=== PATIENT | female | born 1935 | race Caucasian/White ===

== ENCOUNTER → 2017-08-24 | Outpatient (CLI) | payer MEDICARE ==
[2017-08-24 08:22] LABS: CH 30.9; CHCM 34.3; HCT 41.1 % (34.0-46.0); HDW 2.55; HGB 13.5 gm/dL (11.4-16.0); MCH 29.7 pg (25.0-35.0); MCHC 32.7 g/dL (31.0-37.0); MCV 90.7 fL (80.0-100.0); RBC 4.53 m/uL (3.80-5.40); RDW 13.9 % (11.5-15.5); WBC 8.4 k/uL (3.8-10.6)
[2017-08-24 08:23] LABS: Appearance,Urine Clear (Clear); Bilirubin,Urine Negative (Negative); Glucose,Urine (UA) Negative (Negative); Ketones,Urine Negative (Negative); Leukocyte Esterase,Urine Negative (Negative); Nitrite,Urine Negative (Negative); Protein,Urine Negative (Negative); Specific Gravity,Urine 1.007 (1.001-1.035); UA Billing (MACRO vs. MICRO) CHEM; Urobilinogen,Urine <2.0 mg/dL (<2.0)
[2017-08-24 08:30] LABS: ALT 33 U/L (9-52); AST 23 U/L (14-36); Alkaline Phosphatase 74 U/L (38-126); Anion Gap 12 mmol/L; Blood Urea Nitrogen 14 mg/dL (7-17); Calcium 9.6 mg/dL (8.4-10.2); Carbon Dioxide 22 mmol/L (22-30); Chloride 102 mmol/L (98-107); Glucose 119 mg/dL (74-99); Non-African American GFR(MDRD) >60 (>60 ml/min/1.73 sqM); Sodium 136 mmol/L (137-145); Total Bilirubin 0.4 mg/dL (0.2-1.3); Total Protein 7.2 g/dL (6.3-8.2)
[2017-08-24 08:34] LABS: INR 1.1 (<1.2); Partial Thromboplastin Time 24.4 sec (22.0-30.0); Prothrombin Time 11.3 sec (9.0-12.0)
== END | disposition home or self-care (01) ==
LOC: LABPAT 07:53
PROVIDERS: ATTEND Orthopaedic Surgery
DX: Z01.812 Encounter for preprocedural laboratory examination (principal); Z51.81 Encounter for therapeutic drug level monitoring; Z79.01 Long term (current) use of anticoagulants
CPT/HCPCS: 36415; 80053; 81003; 85027; 85610; 85730; 87070

== ENCOUNTER → 2017-09-01 | Outpatient (CLI) | payer MEDICARE ==
--- NOTE | 2017-09-01 16:29 | US ---
EXAMINATION TYPE: US carotid duplex BILAT DATE OF EXAM: 09/01/2017 COMPARISON: NONE CLINICAL HISTORY: R09.89 Carotid Bruit. Pre surgical assessment, pending hip replacement EXAM MEASUREMENTS: RIGHT: Peak Systolic Velocity (PSV) cm/sec ----- Right CCA: 86.6 ----- Right ICA: 111.7 ----- Right ECA: 174.0 ICA/CCA ratio: 1.3 RIGHT: End Diastole cm/sec ----- Right CCA: 16.8 ----- Right ICA: 21.1 ----- Right ECA: 8.5 LEFT: Peak Systolic Velocity (PSV) cm/sec ----- Left CCA: 92.2 ----- Left ICA: 93.0 ----- Left ECA: 108.4 ICA/CCA ratio: 1.0 LEFT: End Diastole cm/sec ----- Left CCA: 18.0 ----- Left ICA: 22.4 ----- Left ECA: 12.8 VERTEBRALS (direction of flow): Right Vertebral: Antegrade Left Vertebral: Antegrade Rhythm: Normal Mild heterogeneous plaque seen with no significant stenosis IMPRESSION: 1. Atheromatous plaquing without significant internal carotid artery flow-limiting stenosis by ultras ound velocities. Some narrowing of the right external carotid artery may be present. Criteria for Assigning % of Stenosis / Diameter reduction (Estimation based on the indirect measurements of the internal carotid artery velocities (ICA PSV). 1. Normal (no stenosis)=ICA PSV < 125 cm/s: ratio < 2.0: ICA EDV<40 cm/s. 2. Less than 50% stenosis=ICA PSV < 125 cm/s: ratio < 2.0: ICA EDV<40 cm/s. 3. 50 to 69% stenosis=ICA PSV of 125 to 230 cm/s: ration 2.0 ? 4.0: ICA EDV 40-100 cm/s. 4. Greater than 70% stenosis to near occlusion= ICA PSV > 230 cm/s: ratio > 4.0: ICA EDV > 100 cm/s. 5. Near occlusion= ICA PSV velocities may be low or undetectable: variable ratio and ICA EDV. 6. Total occlusion=unable to detect flow.
== END ==
LOC: RADUSWWP 15:44
PROVIDERS: ATTEND Family Medicine
DX: I70.90 Unspecified atherosclerosis (principal)
CPT/HCPCS: 86850; 86900; 86901; 93880

== ENCOUNTER → 2018-05-07 | Outpatient (CLI) | payer MEDICARE ==
[2018-05-08 08:00] VITALS: BMI 29.2
== END | disposition home or self-care (01) ==
LOC: MNTWWP 08:39
PROVIDERS: ATTEND Family Medicine
DX: R73.01 Impaired fasting glucose (principal)
CPT/HCPCS: 97802

== ENCOUNTER → 2018-08-15 | Outpatient (CLI) | payer MEDICARE ==
--- NOTE | 2018-08-15 09:23 | CT ---
EXAMINATION TYPE: CT sinus wo con DATE OF EXAM: 08/15/2018 COMPARISON: None HISTORY: hyposmia CT DLP: 544.70 mGycm CONTRAST: 0 mL of Isovue 300 The paranasal sinuses are examined in the axial plane at 2 mm thick sections. Reconstructed images i n the coronal plane were obtained. There is dental amalgam scatter artifact The maxillary sinuses are clear. The ethmoid air cells are clear. There is opacification of a small right sphenoid sinus. The frontal sinuses are clear. The septum is evaluated. There is septal deviation to the right. Bilateral katie bullosa are presen t. Small right septal spur is present. The ostiomeatal units are patent. Portion of the mastoid air cells within the [id number] are clear. Cribriform plate appears unremar kable. IMPRESSIONS: 1. Opacification of a small right sphenoid sinus. 2. Septal deviation.
== END | disposition home or self-care (01) ==
LOC: RADCTMAIN 07:09
PROVIDERS: ATTEND Otolaryngology
DX: J34.89 Other specified disorders of nose and nasal sinuses (principal); J34.2 Deviated nasal septum; R43.2 Parageusia
CPT/HCPCS: 70486

== ENCOUNTER → 2019-05-08 | Outpatient (CLI) | payer MEDICARE ==
--- NOTE | 2019-05-08 21:33 | US ---
EXAMINATION TYPE: US carotid duplex BILAT DATE OF EXAM: 05/08/2019 COMPARISON: 09/01/2017 CLINICAL HISTORY: 83-year-old female R09.89 SYMPTOMS INVOLVING CIRCULATORY AND RESPIRATORY SYSTEMS. B ruit, no symptoms, no h/o stroke TECHNIQUE: Carotid duplex ultrasound examination. Indirect Doppler criteria is utilized. FINDINGS: EXAM MEASUREMENTS: RIGHT: Peak Systolic Velocity (PSV) cm/sec ----- Right CCA: 76.5 ----- Right ICA: 124 ----- Right ECA: 130 ICA/CCA ratio: 1.6 RIGHT: End Diastole cm/sec ----- Right CCA: 0.0 ----- Right ICA: 22.6 ----- Right ECA: 5.4 LEFT: Peak Systolic Velocity (PSV) cm/sec ----- Left CCA: 92.6 ----- Left ICA: 94.0 ----- Left ECA: 84.5 ICA/CCA ratio: 1.0 LEFT: End Diastole cm/sec ----- Left CCA: 16.6 ----- Left ICA: 22.7 ----- Left ECA: 4.3 VERTEBRALS (direction of flow): Right Vertebral: antegrade Left Vertebral: antegrade Rhythm: Normal Power Plant Installer notes: Mild homogeneous plaque with no significant stenosis seen IMPRESSION: No hemodynamically significant stenosis appreciated in either internal carotid artery. Criteria for Assigning % of Stenosis / Diameter reduction (Estimation based on the indirect measurements of the internal carotid artery velocities (ICA PSV). 1. Normal (no stenosis)=ICA PSV < 125 cm/s: ratio < 2.0: ICA EDV<40 cm/s. 2. Less than 50% stenosis=ICA PSV < 125 cm/s: ratio < 2.0: ICA EDV<40 cm/s. 3. 50 to 69% stenosis=ICA PSV of 125 to 230 cm/s: ration 2.0 ? 4.0: ICA EDV 40-100 cm/s. 4. Greater than 70% stenosis to near occlusion= ICA PSV > 230 cm/s: ratio > 4.0: ICA EDV > 100 cm/s. 5. Near occlusion= ICA PSV velocities may be low or undetectable: variable ratio and ICA EDV. 6. Total occlusion=unable to detect flow.
== END | disposition home or self-care (01) ==
LOC: RADUSWWP 14:23
PROVIDERS: ATTEND Family Medicine
DX: R09.89 Other specified symptoms and signs involving the circulatory and respiratory systems (principal)
CPT/HCPCS: 93880

== ENCOUNTER → 2019-06-24 | Outpatient (CLI) | payer MEDICARE ==
--- NOTE | 2019-06-24 11:43 | ECHOF ---
Referral Reason:r01.1 cardiac murmur,unspecified MEASUREMENTS -------- HEIGHT: 152.4 cm WEIGHT: 65.8 kg BP: 189/83 RVIDd: 2.7 cm (< 3.3) IVSd: 1.0 cm (0.6 - 1.1) LVIDd: 4.1 cm (3.9 - 5.3) LVPWd: 1.0 cm (0.6 - 1.1) IVSs: 1.3 cm LVIDs: 2.8 cm LVPWs: 1.5 cm LA Diam: 3.3 cm (2.7 - 3.8) LAESV Index (A-L): 23.13 ml/m Ao Diam: 2.9 cm (2.0 - 3.7) AV Cusp: 1.3 cm (1.5 - 2.6) MV EXCURSION: 12.408 mm (> 18.000) MV EF SLOPE: 21 mm/s (70 - 150) EPSS: 0.5 cm MV E Venancio: 0.97 m/s MV DecT: 292 ms MV A Venancio: 1.22 m/s MV E/A Ratio: 0.79 AV maxP.33 mmHg AV maxP.33 mmHg AV meanP.31 mmHg RAP: 5.00 mmHg RVSP: 25.94 mmHg FINDINGS -------- Sinus rhythm. This was a technically excellent study. The left ventricular size is normal. Left ventricular wall thickness is normal. Overall left vent ricular systolic function is normal with, an EF between 60 - 65 %. The right ventricle is normal in size. Normal LA size by volume 22+/-6 ml/m2. The right atrium is normal in size. Aneurysmal Interatrial septum. The aortic valve is bicuspid. There is mild to moderate aortic valve sclerosis. Trace amount of a ortic regurgitation. There is mild aortic stenosis present. Peak/mean gradient across the Aortic Valve is 22.33mmHg / 14.31mmHg. There is trace to mild mitral regurgitation. Mild tricuspid regurgitation present. Right ventricular systolic pressure is normal at < 35 mmHg. Trace/mild (physiologic) pulmonic regurgitation. The aortic root size is normal. Normal inferior vena cava with normal inspiratory collapse consistent with estimated right atrial pre ssure of 5 mmHg. There is no pericardial effusion. CONCLUSIONS -------- 1. Sinus rhythm. 2. This was a technically excellent study. 3. The left ventricular size is normal. 4. Left ventricular wall thickness is normal. 5. Overall left ventricular systolic function is normal with, an EF between 60 - 65 %. 6. The right ventricle is normal in size. 7. Normal LA size by volume 22+/-6 ml/m2. 8. The right atrium is normal in size. 9. Aneurysmal Interatrial septum. 10. The aortic valve is bicuspid. 11. There is mild to moderate aortic valve sclerosis. 12. Trace amount of aortic regurgitation. 13. There is mild aortic stenosis present. 14. Peak/mean gradient across the Aortic Valve is 22.33mmHg / 14.31mmHg. 15. There is trace to mild mitral regurgitation. 16. Mild tricuspid regurgitation present. 17. Right ventricular systolic pressure is normal at < 35 mmHg. 18. Trace/mild (physiologic) pulmonic regurgitation. 19. The aortic root size is normal. 20. Normal inferior vena cava with normal inspiratory collapse consistent with estimated right atrial pressure of 5 mmHg. 21. There is no pericardial effusion. SAGGER PREPARER: Maegan Ramos RDCS
== END | disposition home or self-care (01) ==
LOC: RADECHMAIN 08:19
PROVIDERS: ATTEND Family Medicine
DX: I25.3 Aneurysm of heart (principal); I08.3 Combined rheumatic disorders of mitral, aortic and tricuspid valves
CPT/HCPCS: 93306

== ENCOUNTER → 2020-01-23 | Outpatient (CLI) | payer MEDICARE ==
--- NOTE | 2020-01-23 18:01 | ECHOF ---
Referral Reason:R06.09 Dyspnea MEASUREMENTS -------- HEIGHT: 152.4 cm WEIGHT: 68.0 kg BP: RVIDd: 1.1 cm (< 3.3) IVSd: 1.1 cm (0.6 - 1.1) LVIDd: 4.2 cm (3.9 - 5.3) LVPWd: 1.1 cm (0.6 - 1.1) IVSs: 1.3 cm LVIDs: 3.2 cm LVPWs: 1.0 cm LA Diam: 3.3 cm (2.7 - 3.8) LAESV Index (A-L): 28.35 ml/m Ao Diam: 2.6 cm (2.0 - 3.7) AV Cusp: 0.9 cm (1.5 - 2.6) LA Diam: 3.4 cm (2.7 - 3.8) MV EXCURSION: 15.184 mm (> 18.000) MV EF SLOPE: 37 mm/s (70 - 150) EPSS: 0.9 cm MV E Venancio: 0.70 m/s MV DecT: 144 ms MV A Venancio: 1.11 m/s MV E/A Ratio: 0.63 AV maxP.51 mmHg AV meanP.46 mmHg RAP: 5.00 mmHg RVSP: 31.30 mmHg FINDINGS -------- Sinus rhythm. This was a technically good study. The left ventricular size is normal. There is mild concentric left ventricular hypertrophy. Overa ll left ventricular systolic function is low-normal with, an EF between 50 - 55 %. The diastolic fi lling pattern is normal for the age of the patient 15.77. The right ventricle is normal in size. The left atrial size is normal. The right atrial size is normal. There is mild aortic stenosis present. Peak/mean gradient across the Aortic Valve is 20.51mmHg / 12 .46mmHg. Aortic valve is functionally bicuspid and is mildly thickened. Mild mitral annular calcification present. No mitral regurgitation. No regurgitation noted Right ventricular systolic pressure is normal at < 35 mmHg. There is no ev idence of pulmonary hypertension. There is no pulmonic regurgitation present. The aortic root size is normal. There is no pericardial effusion. CONCLUSIONS -------- 1. Sinus rhythm. 2. This was a technically good study. 3. The left ventricular size is normal. 4. There is mild concentric left ventricular hypertrophy. 5. Overall left ventricular systolic function is low-normal with, an EF between 50 - 55 %. 6. The diastolic filling pattern is normal for the age of the patient 15.77 7. The right ventricle is normal in size. 8. The left atrial size is normal. 9. The right atrial size is normal. 10. There is mild aortic stenosis present. 11. Peak/mean gradient across the Aortic Valve is 20.51mmHg / 12.46mmHg. 12. Aortic valve is functionally bicuspid and is mildly thickened. 13. Mild mitral annular calcification present. 14. No mitral regurgitation. 15. No regurgitation noted 16. Right ventricular systolic pressure is normal at < 35 mmHg. 17. There is no evidence of pulmonary hypertension. 18. There is no pulmonic regurgitation present. 19. The aortic root size is normal. 20. There is no pericardial effusion. INSTRUMENT ASSEMBLER: Anel Nicole RDCS
== END | disposition home or self-care (01) ==
LOC: RADECHMAIN 11:38
PROVIDERS: ATTEND Family Medicine
DX: R06.09 Other forms of dyspnea (principal)
CPT/HCPCS: 93306

== ENCOUNTER → 2020-04-28 | Outpatient (CLI) | payer MEDICARE ==
[2020-04-28 09:08] LABS: HCT 40.3 % (34.0-46.0); HGB 13.7 gm/dL (11.4-16.0); MCH 30.4 pg (25.0-35.0); MCHC 33.9 g/dL (31.0-37.0); MCV 89.5 fL (80.0-100.0); Mean Platelet Volume 9.2; Platelet Count 295 k/uL (150-450); RDW 12.9 % (11.5-15.5); WBC 7.4 k/uL (3.8-10.6)
[2020-04-28 09:54] LABS: Potassium 4.8 mmol/L (3.5-5.1)
== END | disposition home or self-care (01) ==
LOC: LABPAT 08:03
PROVIDERS: ATTEND Internal Medicine Interventional Cardiology
DX: Z01.818 Encounter for other preprocedural examination (principal); R07.89 Other chest pain; Z11.59 Encounter for screening for other viral diseases
CPT/HCPCS: 80051; 82565; 84520; 85027; U0003

== ENCOUNTER 2020-04-30 06:27 | Inpatient (IN) | payer MEDICARE ==
[2020-04-29 09:35] VITALS: BMI 28.3
[~2020-04-30 06:27] MED LIST: ALPRAZolam 0.25 MG TAB PO PRN; ALPRAZolam 0.5 MG TAB PO PRN; ASPIRIN 325 MG TAB PO STA; NITROGLYCERIN SL TABS 0.4 MG TAB SUBLINGUAL PRN; SODIUM CHLORIDE 0.9% 1,000 ML in EMPTY BAG 1 BAG IV ONE
[2020-04-30] MEDS ORDERED: ASPIRIN 81 MG ONE (06:47)
[2020-04-30 07:16] LABS: Calcium 9.2 mg/dL (8.4-10.2); Potassium 4.4 mmol/L (3.5-5.1)
[2020-04-30] MEDS ORDERED: VERAPAMIL 2.5 MG/ML 2 ML AMP ONE (10:49)
[2020-04-30] MEDS ORDERED: LIDOCAINE 1% INJ 10MG/ML (20 ML MDV) ONE (10:49)
[2020-04-30] MEDS ORDERED: HEPARIN SODIUM 1,000 UN/ML (10ML VL) ONE (10:49)
[2020-04-30] MEDS ORDERED: MIDAZOLAM 2 MG/2 ML VIAL IV ONE (10:59)
[2020-04-30] MEDS ORDERED: LIDOCAINE 1% INJ 10MG/ML (20 ML MDV) SQ ONE (11:05)
[2020-04-30] MEDS: VERAPAMIL SYRINGE (5 MG/10 ML) INTRAARTER ONE ×2 (11:07→12:13)
[2020-04-30] MEDS ORDERED: NITROGLYCERIN SL TABS 0.4 MG TAB SUBLINGUAL ONE ×2 (11:13→11:14)
[2020-04-30] MEDS ORDERED: BIVALIRUDIN BOLUS 250 MG/50 ML IV ONE (11:22)
[2020-04-30] MEDS ORDERED: BIVALIRUDIN 250 MG in SODIUM CHLORIDE 0.9% 50 ML IV ONE (11:23)
[2020-04-30] MEDS ORDERED: IOPAMIDOL-370 100ML BTL INJ ONE ×3 (11:32→12:13)
[2020-04-30] MEDS ORDERED: HYDROmorphone 1 MG/ML 1 ML SYRINGE ONE (11:35)
[2020-04-30] MEDS: HYDROmorphone 1 MG/ML 1 ML SYRINGE IVP ONE ×2 (11:38→12:12)
[2020-04-30] MEDS: NITROGLYCERIN 1000MCG/10ML SYRINGE INTRACORON ONE ×2 (11:46→11:54)
[2020-04-30] MEDS: niCARdipine Syringe (1,000 mcg/10 mL) INTRACORON ONE ×2 (11:47→11:58)
[2020-04-30] MEDS ORDERED: CLOPIDOGREL 75 MG TAB ONE (12:04)
[2020-04-30] MEDS ORDERED: CLOPIDOGREL 75 MG TAB PO ONE (12:06)
[2020-04-30] MEDS ORDERED: MAG HYDROX/AL HYDROX/SIMETH 30 ML CUP PO PRN (12:25)
[2020-04-30] MEDS ORDERED: RX INFO: IV CONTRAST WAS GIVEN 1 EACH MISC MISCELLANE PRN (12:25)
[2020-04-30] MEDS ORDERED: ZOLPIDEM 5 MG TAB PO PRN (12:25)
[2020-04-30] MEDS ORDERED: ATROPINE SULFATE 0.1 MG/ML 10ML SYRINGE IV PRN (12:25)
[2020-04-30 12:44] LABS: Glucose,Whole Blood 128 mg/dL (75-99)
[2020-04-30] MEDS: SODIUM CHLORIDE 0.9% 1,000 ML IV SCH (14:56)
[2020-04-30] MEDS: ONDANSETRON 4 MG/2 ML VIAL IVP PRN (14:57)
--- NOTE | 2020-04-30 17:08 | CC ---
CARDIAC CATHETERIZATION REPORT DATE OF SERVICE: 04/30/2020 PROCEDURES: 1. Left heart catheterization and coronary angiography. 2. PTCA and stenting of calcified mid left anterior descending coronary artery with a drug-eluting stent. PERFORMED BY: Dr. Franklyn Carias. Moderate conscious sedation time was 112 minutes. CLINICAL INFORMATION: Mrs. Cortney Marion is a 84-year-old lady with a known history of hypertension, hypercholesterolemia, who has had a positive stress test, with symptoms of angina, was advised coronary angiography. Risks, benefits, options, rationale were discussed. PROCEDURE NOTE: Under local anesthesia and strict aseptic precautions, a 6-British introducer was placed in the right radial artery. Using a JR4 diagnostic catheter, I performed selective coronary angiography of the right coronary artery and the same catheter was used to check the pressures. In the LV, no LV-gram was performed. I used a JL3.5 catheter for selective coronary angiography of the left system. Following this, I performed intervention of the LAD. Following the procedure, the sheath was taken out and a TR band applied as per protocol with good saturation the fingers of the right hand. CARDIAC CATHETERIZATION FINDINGS: The left ventricular end-diastolic pressure was about 8-10 mmHg. There was a gradient of about 10 mmHg across the aortic valve on pullback gradient. CORONARY ANGIOGRAPHY FINDINGS: The right coronary artery is a large dominant vessel. Has minor irregularities. Mild to moderate calcification, supplies a fair amount of myocardium, has no significant disease. There are mild irregularities with calcification noted. LEFT MAIN CORONARY ARTERY: Short patent, disease-free vessel that bifurcates into LAD and circumflex. LEFT ANTERIOR DESCENDING CORONARY ARTERY: Good caliber vessel that gives off a small diagonal branch and a large diagonal branch and the large diagonal has a long area of disease of 70%-80%. Following the long diagonal branch, there is another septal branch in the LAD, has a very eccentric area and a blocked diagonal branch is noted from this diseased segment, eccentric area of disease about 80%-90% heavily calcified. The vessel runs all the way to the apex giving off septal branches. The LAD and diagonal both have disease. The diagonal disease is a significant vessel, is of good caliber, the ostium is not significantly involved. Mid LAD after the large septal has a significant calcified area of disease. LEFT POSTERIOR CIRCUMFLEX CORONARY ARTERY: This is a codominant/nondominant vessel that gives off an obtuse marginal that has multiple areas of narrowing. It bifurcates into a superior and inferior branch. The superior branch is large in distribution, fair in caliber and there is first obtuse marginal which is a good caliber vessel has disease as it comes off from the circumflex and also in the inferior branch. The superior branch has no other significant disease. It is small in caliber, but large in distribution. This is the area that showed up on the stress test. FINAL IMPRESSION: This patient has significant disease involving the mid LAD, major diagonal branch and also circumflex marginal vessel. Right is probably a dominant vessel. Filling pressures are normal. There was a gradient of 10 mm across the aortic valve on pullback. The vessels are calcified. RECOMMENDATIONS: I recommended PCI of LAD and proceeded to perform this in the same setting. PCI PROCEDURE DETAILS: I used a JL3.5 guide catheter and a run-through wire. I was having difficulty crossing the wire at the site of the lesion, which was heavily calcified. I tried to combine it with a 2.25 caliber NC Trek balloon, but I still could not cross. I then used a 45 degrees angle super cross catheter with a long straight wire and with this combination I was able to cross the vessel, wire was kept distally. I then noted that the there was no flow after I crossed. Patient had chest pain, mild ST elevation. I have multiple angiograms I obtained and noted that I may have had a subintimal pop with the wire. However, after assuring that wire position was good, I gave multiple inflations and the vessel opened up with improvement in flow, resolution of chest pain and improvement in EKG changes. I noted that distally there was a wire related distal dissection in the vessel, but flow was fairly well preserved. After some deliberation, I deployed a 23 mm long 2.75 caliber Xience stent right after the large septal branch. There was good angiographic result, but the flow distally was still somewhat sluggish, especially with the distal LAD wire-related dissection. The patient's chest pain improved to about 2/10. The EKGs also showed improvement, but the septal perfusion decrease and the septal branches were not as evident on the initial angiogram and patient will have a septal myocardial infarction. The patient was then sent in hemodynamically stable condition to the ICU with about 2/[address] and mild ST elevation in leads V1 and V2. Results were discussed with the patient as well as her daughter in-law in great detail. The patient had therefore a dissection and intimal dissection and at the site of the lesion and also a distal wire related dissection. However, she will have some myocardial damage and hopefully she will remain stable throughout. Findings, concerns and details were discussed with the patient and her [id number] and she was sent to the ICU in a stable condition. MMSAM / LOTTIEN: [id number] /
[2020-04-30] MEDS: ATORVASTATIN 80 MG TAB PO SCH (20:00)
[2020-05-01] MEDS: ONDANSETRON 4 MG/2 ML VIAL IVP PRN (00:28)
[2020-05-01 05:07] LABS: Basophils % (A) 0 %; Eosinophils % (A) 0 %; HCT 35.1 % (34.0-46.0); HGB 12.1 gm/dL (11.4-16.0); Lymphocytes # (A) 1.7 k/uL (1.0-4.8); Lymphocytes % (A) 14 %; MCH 31.1 pg (25.0-35.0); MCHC 34.6 g/dL (31.0-37.0); Mean Platelet Volume 8.2; Monocytes # (A) 0.5 k/uL (0-1.0); Monocytes % (A) 4 %; Neutrophils # (A) 9.7 k/uL (1.3-7.7); Neutrophils % (A) 80 %; Platelet Count 257 k/uL (150-450); WBC 12.2 k/uL (3.8-10.6)
[2020-05-01 05:16] LABS: Potassium 4.4 mmol/L (3.5-5.1)
[2020-05-01] MEDS: SODIUM CHLORIDE 0.9% 1,000 ML IV SCH (06:35)
--- NOTE | 2020-05-01 07:39 | PN ---
PROGRESS NOTE Mrs. Marion is an 84-year-old female who has underwent cardiac catheterization by Dr. Carias yesterday, was found to have a critical stenosis involving the LAD and underwent stenting of that vessel. She had a dissection in distal vessel with good flow. She is feeling well this morning with minimal discomfort. Her breathing has been stable. She denies any dizziness or palpitation. Hemodynamically, she is stable. She has no arrhythmia. She continued to be on aspirin once a day, Lipitor 80 mg daily, Plavix 75 mg daily, losartan 100 mg daily, metoprolol tartrate 12.5 mg daily. PHYSICAL EXAMINATION: Blood pressure 119/80 with the heart rate in the 80s. LUNGS: Clear. HEART: Regular rate and rhythm. S1, S2. No S3 with a systolic ejection murmur heard at the base. No diastolic murmur. ABDOMEN: Soft and nontender. EXTREMITIES: No edema. Right radial pulse intact. LAB DATA: Lab data revealed troponin of 19.1, potassium 4.4. BUN and creatinine 14 and 0.86. Hemoglobin is 12.1. EKG shows no acute ST-segment changes. She has minimal ST-segment elevation anteriorly without evolution. IMPRESSION: 1. Status post stenting of the LAD with distal dissection and good flow. 2. Hypertension. 3. Hyperlipidemia. RECOMMENDATION: I will increase the dose of her beta luciano, increase her level of activity. She should be able to be transferred to telemetry floor and depending on her progress, further recommendation will be made. Patient had obstructive disease in the diagonal branch and she will be evaluated at a later time to undergo staged angioplasty. MMODL / IJN: [id number] /
[2020-05-01] MEDS ORDERED: METOPROLOL TARTRATE 12.5 MG TAB PO SCH (09:00)
[2020-05-01] MEDS ORDERED: METOPROLOL TARTRATE 25 MG TAB PO SCH (09:00)
[2020-05-01] MEDS: ASPIRIN 81 MG PO SCH (09:17)
[2020-05-01] MEDS: METOPROLOL TARTRATE 25 MG TAB PO SCH ×2 (09:17→22:38)
[2020-05-01] MEDS: LOSARTAN 50 MG TAB PO SCH (09:17)
--- NOTE | 2020-05-01 10:59 | ECHOF ---
Referral Reason: MEASUREMENTS -------- HEIGHT: 0.0 cm WEIGHT: 0.0 kg BP: FINDINGS -------- Limited Study S/P CATH There is no pericardial effusion. CONCLUSIONS -------- 1. Limited Study S/P CATH 2. There is no pericardial effusion. ROTARY KILN OPERATOR: Eugenie Galvan CHRISTIANO
[2020-05-01] MEDS: CLOPIDOGREL 75 MG TAB PO SCH (14:24)
[2020-05-01] MEDS: ATORVASTATIN 80 MG TAB PO SCH (22:38)
[2020-05-02 06:25] LABS: Basophils % (A) 0 %; Eosinophils # (A) 0.1 k/uL (0-0.7); Eosinophils % (A) 0 %; HCT 36.7 % (34.0-46.0); HGB 11.7 gm/dL (11.4-16.0); Lymphocytes # (A) 1.6 k/uL (1.0-4.8); Lymphocytes % (A) 11 %; MCH 28.4 pg (25.0-35.0); MCV 88.7 fL (80.0-100.0); Mean Platelet Volume 8.1; Monocytes # (A) 0.9 k/uL (0-1.0); Monocytes % (A) 7 %; Neutrophils # (A) 11.6 k/uL (1.3-7.7); Neutrophils % (A) 81 %; Platelet Count 225 k/uL (150-450); RBC 4.13 m/uL (3.80-5.40); RDW 12.9 % (11.5-15.5); WBC 14.4 k/uL (3.8-10.6)
[2020-05-02 06:33] LABS: Calcium 8.6 mg/dL (8.4-10.2); Potassium 3.9 mmol/L (3.5-5.1)
[2020-05-02] MEDS: CLOPIDOGREL 75 MG TAB PO SCH (08:28)
[2020-05-02] MEDS: LOSARTAN 50 MG TAB PO SCH (08:28)
[2020-05-02] MEDS: ASPIRIN 81 MG PO SCH (08:29)
[2020-05-02] MEDS: METOPROLOL TARTRATE 25 MG TAB PO SCH ×2 (08:29→20:11)
[2020-05-02] MEDS: POTASSIUM CHLORIDE ER 20 MEQ TAB.ER PO SCH (09:27)
[2020-05-02] MEDS: FUROSEMIDE 10 MG/ML 2 ML VIAL IV SCH ×2 (09:27→20:11)
--- NOTE | 2020-05-02 09:29 | P.PN ---
Subjective Progress Note Date: 05/02/20 This is a 83-year-old female who underwent cardiac catheterization and stent placement of the LAD by Dr. KVNG Carias. There was a distal vessel dissection with good flow. Patient seemed to be doing well today. He complains of slight tachypnea but doesn't admit to be short of breath. Lungs do not appear to be showing any significant rhonchi or rales at this time. Heart is regular. Patient has been in she did on IV Lasix. Her LV gram showed an ejection fraction about 35%. No pericardial effusion. Patient will continue current medical therapy. Increase activity as tolerated. Possible discharge within next 24-48 hours Objective - Vital Signs Vital signs: Vital Signs Temp 99.0 F 05/02/20 08:00 Pulse 93 05/02/20 08:00 Resp 19 05/02/20 08:00 BP 115/59 05/02/20 08:00 Pulse Ox 92 L 05/02/20 08:00 Intake & Output 05/01/20 05/02/20 05/02/20 18:59 06:59 18:59 Output Total 330 0 0 Balance -330 0 0 Weight 71.2 kg Output: Urine 300 0 0 Emesis 30 Other: Voiding Method Toilet Toilet # Voids 1 1 0 # Bowel Movements 1 - Exam GENERAL EXAM: Patient is alert and oriented and doesn't appear to be in any acute distress HEENT: Normocephalic. Normal reaction of pupils, equal size, normal range of extraocular motion. No erythema or exudates in the throat. NECK: No masses, no nuchal rigidity. CHEST: No chest wall deformity. LUNGS: Equal air entry with no crackles or wheeze. HEART: S1 and S2 normal with systolic murmur ABDOMEN: No hepatosplenomegaly, normal bowel sounds, no guarding or rigidity. SKIN: No rashes CENTRAL NERVOUS SYSTEM: No focal deficits. EXTREMITIES: No cyanosis, clubbing or edema. - Labs CBC & Chem 7: 05/02/20 06:05 05/02/20 06:05 Labs: Abnormal Lab Results - Last 24 Hours (Table) 05/01/20 05/01/20 05/02/20 Range/Units 14:33 19:34 06:05 WBC (3.8-10.6) k/uL Neutrophils # (1.3-7.7) k/uL Sodium 131 L (137-145) mmol/L Glucose 138 H (74-99) mg/dL Troponin I 34.000 H* 34.600 H* (0.000-0.034) ng/mL 05/02/20 Range/Units 06:05 WBC 14.4 H (3.8-10.6) k/uL Neutrophils # 11.6 H (1.3-7.7) k/uL Sodium (137-145) mmol/L Glucose (74-99) mg/dL Troponin I (0.000-0.034) ng/mL Assessment and Plan (1) Acute MN Current Visit: Yes Status: Acute Code(s): I21.9 - ACUTE MYOCARDIAL INFARCTION, UNSPECIFIED SNOMED Code(s): 81421057 (2) History of placement of stent in LAD coronary artery Current Visit: Yes Status: Acute Code(s): Z95.5 - PRESENCE OF CORONARY ANGIOPLASTY IMPLANT AND GRAFT SNOMED Code(s): 987303865 (3) Ischemic cardiomyopathy Current Visit: Yes Status: Acute Code(s): I25.5 - ISCHEMIC CARDIOMYOPATHY SNOMED Code(s): 128890784 (4) Acute systolic CHF (congestive heart failure), NYHA class 1 Current Visit: Yes Status: Acute Code(s): I50.21 - ACUTE SYSTOLIC (CONGESTIVE) HEART FAILURE SNOMED Code(s): 846380594 (5) Acute systolic CHF (congestive heart failure) Current Visit: Yes Status: Acute Code(s): I50.21 - ACUTE SYSTOLIC (CONGESTIVE) HEART FAILURE SNOMED Code(s): 749509384 Plan: Continue current medical therapy. Add Lasix. Chest x-ray in the morning. Increase activity as tolerated
--- NOTE | 2020-05-02 14:42 | ECHOF ---
Referral Reason:Heather Procedural MA MEASUREMENTS -------- HEIGHT: 152.4 cm WEIGHT: 70.8 kg BP: IVSd: 1.0 cm (0.6 - 1.1) LVIDd: 4.7 cm (3.9 - 5.3) LVPWd: 1.0 cm (0.6 - 1.1) IVSs: 1.0 cm LVIDs: 4.2 cm LVPWs: 1.1 cm FINDINGS -------- Sinus rhythm. Limited Study The left ventricular size is normal. Left ventricular wall thickness is normal. There is severe g lobal hypokinesis of LV . Overall left ventricular systolic function is severely impaired with, an EF between 20 - 25 %. Basal Segment Constance only. Moderate mitral regurgitation is present. There is a small, generalized pericardial effusion present VS pericardial fat pad. CONCLUSIONS -------- 1. Sinus rhythm. 2. Limited Study 3. The left ventricular size is normal. 4. Left ventricular wall thickness is normal. 5. There is severe global hypokinesis of LV . 6. Overall left ventricular systolic function is severely impaired with, an EF between 20 - 25 %. 7. Basal Segment Constance only. 8. Moderate mitral regurgitation is present. 9. There is a small, generalized pericardial effusion present VS pericardial fat pad. RECREATIONAL THERAPY TECHNICIAN: Katelyn Worley RDCS
[2020-05-02] MEDS: ATORVASTATIN 80 MG TAB PO SCH (20:11)
--- NOTE | 2020-05-03 06:02 | XR ---
EXAMINATION TYPE: XR chest 1V portable DATE OF EXAM: 05/03/2020 HISTORY: CHF. REFERENCE: NONE. FINDINGS: Heart size upper limits of normal. There is some left basilar airspace disease. Pulmonary v asculature is within normal limits. No dunia edema is identified. I suspect a small left effusion. IMPRESSION: LEFT BASILAR AIRSPACE DISEASE WITH A SMALL CONCOMITANT EFFUSION.
[2020-05-03 06:11] LABS: Basophils % (A) 0 %; Eosinophils # (A) 0.3 k/uL (0-0.7); Eosinophils % (A) 2 %; HCT 34.3 % (34.0-46.0); Lymphocytes # (A) 2.1 k/uL (1.0-4.8); Lymphocytes % (A) 16 %; MCHC 34.9 g/dL (31.0-37.0); MCV 88.7 fL (80.0-100.0); Mean Platelet Volume 8.3; Monocytes # (A) 0.8 k/uL (0-1.0); Monocytes % (A) 7 %; Neutrophils # (A) 9.1 k/uL (1.3-7.7); Neutrophils % (A) 72 %; Platelet Count 219 k/uL (150-450); RBC 3.87 m/uL (3.80-5.40); WBC 12.6 k/uL (3.8-10.6)
[2020-05-03 06:23] LABS: Calcium 8.4 mg/dL (8.4-10.2); Potassium 3.3 mmol/L (3.5-5.1)
[2020-05-03] MEDS ORDERED: Potassium Replacement Protocol 1 EACH MISC MISCELLANE PRN (07:01)
[2020-05-03] MEDS: POTASSIUM CHLORIDE ER 20 MEQ TAB.ER PO SCH ×3 (07:14→09:40)
[2020-05-03] MEDS ORDERED: FUROSEMIDE 10 MG/ML 2 ML VIAL IV SCH (09:00)
[2020-05-03] MEDS: SPIRONOLACTONE 25 MG TAB PO SCH (09:39)
[2020-05-03] MEDS: METOPROLOL TARTRATE 25 MG TAB PO SCH ×2 (09:39→20:29)
[2020-05-03] MEDS: CLOPIDOGREL 75 MG TAB PO SCH (09:39)
[2020-05-03] MEDS: ASPIRIN 81 MG PO SCH (09:39)
[2020-05-03] MEDS: FUROSEMIDE 20 MG TAB PO SCH (09:39)
[2020-05-03] MEDS: LOSARTAN 50 MG TAB PO SCH (09:40)
--- NOTE | 2020-05-03 11:24 | P.PN ---
Subjective Progress Note Date: 05/03/20 This is a 83-year-old female who underwent cardiac catheterization and stent placement of the LAD by Dr. KVNG Carias. There was a distal vessel dissection with good flow. Patient seemed to be doing well today. He complains of slight tachypnea but doesn't admit to be short of breath. Lungs do not appear to be showing any significant rhonchi or rales at this time. Heart is regular. Patient has been in she did on IV Lasix. Her LV gram showed an ejection fraction about 35%. No pericardial effusion. Patient will continue current medical therapy. Increase activity as tolerated. Possible discharge within next 24-48 hours. 05/03/2020: Patient is feeling better. Less short of breath. Her lab values showed a hypokalemia. We'll going to start to replace her potassium. Change to by mouth Lasix. 20 mV daily and had Aldactone 12.5 mg a chest x-ray showed no evidence of any CHF. We'll repeat her blood work this afternoon. If the potassium is normal, patient will be discharged home. She will continue with her Lasix and Aldactone along the rest of the medication. Follow-up with Dr. KVNG Carias in one week. Objective - Vital Signs Vital signs: Vital Signs Temp 97.9 F 05/03/20 08:00 Pulse 91 05/03/20 08:00 Resp 20 05/03/20 08:00 BP 112/56 05/03/20 08:00 Pulse Ox 93 L 05/03/20 08:00 Intake & Output 05/02/20 05/03/20 05/03/20 18:59 06:59 18:59 Output Total 1000 1200 0 Balance -1000 -1200 0 Weight 69.1 kg Output: Urine 1000 1200 0 Other: Voiding Method Toilet Toilet Toilet Bedside Commode # Voids 0 0 - Exam GENERAL EXAM: Patient is alert and oriented and doesn't appear to be in any acute distress HEENT: Normocephalic. Normal reaction of pupils, equal size, normal range of extraocular motion. No erythema or exudates in the throat. NECK: No masses, no nuchal rigidity. CHEST: No chest wall deformity. LUNGS: Equal air entry with no crackles or wheeze. HEART: S1 and S2 normal with systolic murmur ABDOMEN: No hepatosplenomegaly, normal bowel sounds, no guarding or rigidity. SKIN: No rashes CENTRAL NERVOUS SYSTEM: No focal deficits. EXTREMITIES: No cyanosis, clubbing or edema. - Labs CBC & Chem 7: 05/03/20 05:46 05/03/20 05:46 Labs: Abnormal Lab Results - Last 24 Hours (Table) 05/03/20 05/03/20 Range/Units 05:46 05:46 WBC 12.6 H (3.8-10.6) k/uL Neutrophils # 9.1 H (1.3-7.7) k/uL Sodium 131 L (137-145) mmol/L Potassium 3.3 L (3.5-5.1) mmol/L Glucose 113 H (74-99) mg/dL Assessment and Plan (1) Acute CO Current Visit: Yes Status: Acute Code(s): I21.9 - ACUTE MYOCARDIAL INFARCTION, UNSPECIFIED SNOMED Code(s): 30959703 (2) History of placement of stent in LAD coronary artery Current Visit: Yes Status: Acute Code(s): Z95.5 - PRESENCE OF CORONARY ANGIOPLASTY IMPLANT AND GRAFT SNOMED Code(s): 513435628 (3) Ischemic cardiomyopathy Current Visit: Yes Status: Acute Code(s): I25.5 - ISCHEMIC CARDIOMYOPATHY SNOMED Code(s): 782629548 (4) Acute systolic CHF (congestive heart failure), NYHA class 1 Current Visit: Yes Status: Acute Code(s): I50.21 - ACUTE SYSTOLIC (CONGESTIVE) HEART FAILURE SNOMED Code(s): 412357677 (5) Acute systolic CHF (congestive heart failure) Current Visit: Yes Status: Acute Code(s): I50.21 - ACUTE SYSTOLIC (CONGESTIVE) HEART FAILURE SNOMED Code(s): 075089813 Plan: Patient is feeling much better today. Hypokalemia is being corrected. Patient could be discharged home later today. Follow-up with Dr. KVNG Carias
[2020-05-03 15:31] LABS: Calcium 8.4 mg/dL (8.4-10.2); Potassium 3.9 mmol/L (3.5-5.1)
[2020-05-03] MEDS: ATORVASTATIN 80 MG TAB PO SCH (20:29)
[2020-05-04 04:15] VITALS: TEMP 98.2
[2020-05-04 05:21] LABS: Calcium 8.3 mg/dL (8.4-10.2); Potassium 4.2 mmol/L (3.5-5.1)
[2020-05-04 08:12] VITALS: BP 111/59; PULSE 82; RESP 20
[2020-05-04] MEDS: LOSARTAN 50 MG TAB PO SCH (08:21)
[2020-05-04] MEDS: SPIRONOLACTONE 25 MG TAB PO SCH (08:21)
[2020-05-04] MEDS: METOPROLOL TARTRATE 25 MG TAB PO SCH (08:21)
[2020-05-04] MEDS: FUROSEMIDE 20 MG TAB PO SCH (08:22)
[2020-05-04] MEDS: CLOPIDOGREL 75 MG TAB PO SCH (08:22)
[2020-05-04] MEDS: ASPIRIN 81 MG PO SCH (08:22)
[2020-05-04] MEDS: POTASSIUM CHLORIDE ER 20 MEQ TAB.ER PO SCH (08:22)
--- NOTE | 2020-05-04 13:41 | DS ---
DISCHARGE SUMMARY DATE OF ADMISSION: 04/30/2020. DATE OF DISCHARGE: 05/04/2020. FINAL DIAGNOSES: Coronary artery disease status post angioplasty of dago with dissection and myocardial infarction. PROCEDURES PERFORMED: Cardiac catheterization and angioplasty. HOSPITAL COURSE: This is an 84-year-old gentleman who was brought in electively for cardiac catheterization and was found to have a critical stenosis involving LAD and had distal dissection with good flow. She had been treated with optimal medical therapy including aspirin, Lipitor, Plavix, losartan, and metoprolol. She had mild congestive heart failure during this admission and was treated with Lasix and Aldactone. An echocardiogram showed a showed an ejection fraction of 20% to 25%. Condition at the time of discharge: The patient is symptom-free, afebrile. Vital signs are stable. There is no jugular venous distention. Carotid upstroke is normal. There is no bruit. Chest is clear to auscultation and percussion. Heart exam reveals first and second heart sounds. No gallop. Abdomen is soft. Exam of extremities did not reveal any edema. Peripheral pulses are felt. Lab showed that the sodium is 129, potassium is 4.2, creatinine is 0.8. BNP is 8370 and the peak troponin was 34.6. DISCHARGE MEDICATIONS: Medications at the time of discharge include: Aspirin, Lipitor 80 daily, Plavix 75 daily, Lasix 20 daily, Aldactone 25 daily, Lopressor 25 b.i.d. and Cozaar. FOLLOWUP: Patient will be followed up by Dr. KVNG Carias in the office in a week's time. MMODL / IJN: [id number] /
--- NOTE | 2020-05-07 07:55 | CDI ---
Documentation Clarification Form Date: 05/07/2020 07:50:47 AM From: Cortney DavalosSTEFAN, CCDS Admit Date: 04/30/2020 12:13:00 PM Patient Name: Cortney Marion Visit Number: [id number] Discharge Date: 05/04/2020 12:04:00 PM ATTENTION: The Clinical Documentation Specialists (CDI) and [facility] Coding Staff appreciate your assistance in clarifying documentation. Please respond to the clarification below the line at the bottom and electronically sign. The CDI & [facility] Coding staff will review the response and follow-up if needed. Please note: Queries are made part of the Legal Health Record. If you have any questions, please contact the author of this message via ITS. Dr. Teto Carias: Per the 04/30 Heart Cath & PTCA report: "Patient had chest pain, mild ST elevation. I have multiple angiograms I obtained and noted that I may have had a subintimal pop with the wire. However, after assuring that wire position was good, I gave multiple inflations and the vessel opened up with improvement in flow, resolution of chest pain and improvement in EKG changes. I noted that distally there was a wire related distal dissection in the vessel, but flow was fairly well preserved. After some deliberation, I deployed a 23 mm long 2.75 caliber Xience stent right after the large septal branch. There was good angiographic result, but the flow distally was still somewhat sluggish, especially with the distal LAD wire-related dissection." Patients Admitting Diagnosis: CAD, STEMI Post-Operative Diagnosis: STEMI, Significant disease involving the mid LAD, major diagonal branch & also circumflex marginal vessel. Procedure performed: Left Heart Catheterization & PTCA with stent to LAD History/Risk Factors: Heart Failure, Ischemic Cardiomyopathy, Hypertension. Clinical Indicators: Presented 04/30 for an elective heart catheterization due to recent chest pain & exertional SOB and was found to have a critical stenosis in the distal LAD, previously treated with Aspirin, Lipitor, Plavix, Losartan & Metoprolol. Treatment: Aspirin, Lipitor, Plavix, Losartan, Metoprolol, Lasix, Aldactone, IV Cefazolin, IV Decadron, IV Dilaudid, IV Zofran, IV Morphine, IV Narcan. In order to accurately reflect this patients severity of illness, please clarify if the distal LAD wire-related dissection: is a complication of surgical procedure is an expected outcome of the surgical procedure is related to co-morbid condition(s) of Other please specify: ___It is an unexpected but well known complication of the Procedure. Unable to determine (Last Revision: December 2019) It is an unexpected but well known complication of the Procedure. MTDD
== END 2020-05-04 12:04 | disposition home or self-care (01) | DRG 246 ==
LOC: CATHCVL 06:27 → 2SICU 12:13
PROVIDERS: ADMIT Internal Medicine Interventional Cardiology; ATTEND Internal Medicine Interventional Cardiology
PROC: 4A023N7 Measurement of Cardiac Sampling and Pressure, Left Heart, Percutaneous Approach (ICD-10-PCS; principal; 2020-04-30 07:30)
PROC: B2111ZZ Fluoroscopy of Multiple Coronary Arteries using Low Osmolar Contrast (ICD-10-PCS; principal; 2020-04-30 07:30)
PROC: 027034Z Dilation of Coronary Artery, One Artery with Drug-eluting Intraluminal Device, Percutaneous Approach (ICD-10-PCS; principal; 2020-04-30 07:30)
DX: I21.29 ST elevation (STEMI) myocardial infarction involving other sites (principal); I50.21 Acute systolic (congestive) heart failure; I25.42 Coronary artery dissection; I25.10 Atherosclerotic heart disease of native coronary artery without angina pectoris; I25.5 Ischemic cardiomyopathy; I11.0 Hypertensive heart disease with heart failure; E78.5 Hyperlipidemia, unspecified; E87.6 Hypokalemia; Z79.02 Long term (current) use of antithrombotics/antiplatelets; Z79.899 Other long term (current) drug therapy
CPT/HCPCS: 71045; 80048; 83880; 84484; 85025; 93306; 93308; 93458

== ENCOUNTER → 2020-06-03 | Outpatient (CLI) | payer MEDICARE ==
[2020-06-03 11:10] LABS: HCT 37.4 % (34.0-46.0); HGB 11.9 gm/dL (11.4-16.0); MCH 29.4 pg (25.0-35.0); MCHC 31.9 g/dL (31.0-37.0); Mean Platelet Volume 8.6; Platelet Count 293 k/uL (150-450); RBC 4.06 m/uL (3.80-5.40); RDW 13.7 % (11.5-15.5); WBC 8.8 k/uL (3.8-10.6)
[2020-06-03 16:42] LABS: African American GFR (CKD) 40.2 (60.0-200.0); Anion Gap 9.3 mmol/L (4.00-12.00); BUN/Creat Ratio 17.86 Ratio (12.00-20.00); Calcium 9.4 mg/dL (8.7-10.3); Carbon Dioxide 23.7 mmol/L (21.6-31.8); Non-African American GFR(CKD) 34.7 (60.0-200.0); Potassium 4.9 mmol/L (3.5-5.5)
== END | disposition home or self-care (01) ==
LOC: LABWHC1 10:13
PROVIDERS: ATTEND Internal Medicine Interventional Cardiology
DX: I10 Essential (primary) hypertension (principal); I25.10 Atherosclerotic heart disease of native coronary artery without angina pectoris
CPT/HCPCS: 36415; 80048; 85027

== ENCOUNTER 2020-08-30 22:49 | Inpatient (IN) | payer MEDICARE ==
[2020-08-30] MEDS ORDERED: SODIUM CHLORIDE 0.9% 500 ML 500 ML IV STA (22:52)
[2020-08-30] MEDS ORDERED: NITROGLYCERIN OINT 1 INCH/GM PACKET TOPICAL STA (22:52)
[2020-08-30] MEDS ORDERED: HEPARIN SODIUM,PORCINE 5,000 UNIT/ML 1 ML VIAL IV ONE (22:59)
[2020-08-30] MEDS ORDERED: HEPARIN SODIUM,PORCINE 5,000 UNIT/ML 1 ML VIAL IV PRN (22:59)
[2020-08-30] MEDS ORDERED: HEPARIN SOD,PORK IN 0.45% NACL 25,000 UNIT in 0.45% NACL 1 250ML.BAG IV SCH (23:00)
--- NOTE | 2020-08-30 23:00 | ED ---
Chest Pain HPI - General Stated Complaint: chest pain Time Seen by Provider: 08/30/20 22:52 - History of Present Illness Initial Comments: Cortney is an 85-year-old female with a history of coronary artery disease who presents to the ER today for evaluation of sudden onset of chest pain. Patient was at home sitting at rest when she had chest pain that began. Pain is retrosternal and associated with shortness of breath. No recent illness no fevers chills nausea vomiting or cough. - Related Data Home Medications Medication Instructions Recorded Confirmed Fluticasone Nasal [place] [Flonase 2 spr EA NOSTRIL DAILY 04/29/20 04/30/20 Nasal [place]] Losartan Potassium [Cozaar] 100 mg PO DAILY 04/29/20 04/30/20 Metoprolol Tartrate 25 mg PO QAM 04/29/20 04/30/20 Previous Rx's Medication Instructions Recorded Aspirin 81 mg PO QAM chew 05/04/20 Atorvastatin [Lipitor] 80 mg PO HS tab 05/04/20 Clopidogrel [Plavix] 75 mg PO DAILY #0 tab 05/04/20 Furosemide [Lasix] 20 mg PO DAILY tab 05/04/20 Nitroglycerin Sl Tabs [Nitrostat] 0.4 mg SUBLINGUAL Q5M PRN tab 05/04/20 Potassium Chloride ER [K-Dur 20] 20 meq PO DAILY tab.er.prt 05/04/20 Allergies Allergy/AdvReac Type Severity Reaction Status Date / Time Lpgbcnh-Jim-Rrh Reductase Allergy Rash/Hives, Verified 04/30/20 06:43 Inhibitor PAIN Review of Systems ROS Statement: Those systems with pertinent positive or pertinent negative responses have been documented in the HPI. ROS Other: All systems not noted in ROS Statement are negative. EKG Findings - EKG Comments: EKG Findings:: Initial EKG obtained at 2255, rate is 77, rhythm is sinus, leftward axis, normal intervals, [place] 156, QRS 92, QTc is [address] elevation in aVR with ST depression in leads 1 aVL and V2 through V6. This is concerning for acute ischemia without evidence of acute infarction. Repeat EKG obtained at 2303, repeat is 77 rhythm is sinus there is leftward axis, normal intervals, [place] 158, QRS 86, QTC 439, there is noted to be ST elevations in aVR, V [address] depressions noted in leads 1 aVL and V3 through V6. This is concerning for ischemic changes without acute infarction Past Medical History Past Medical History: Hypertension, Osteoarthritis (OA) Additional Past Medical History / Comment(s): currently having SOB and fatigue,Hx Ball's Palsy, heart stent LAD x1 04/30/20 History of Any Multi-Drug Resistant Organisms: None Reported Past Surgical History: Breast Surgery, Hysterectomy, Joint Replacement, Orthopedic Surgery Additional Past Surgical History / Comment(s): 03/31/15 Total L hip Arthroplasty. R breast biopsy-benign. Arthroscopy Left knee.ANT. TRH 09/11 Past Anesthesia/Blood Transfusion Reactions: No Reported Reaction Additional Past Anesthesia/Blood Transfusion Reaction / Comment(s): takes awhile to wake up,no hx blood transfusion Past Psychological History: No Psychological Hx Reported Additional Psychological History / Comment(s): Pt lives at home with spouse. She is normally independent. She would like a walker for discharge. She drives a car. Past Alcohol Use History: None Reported Past Drug Use History: None Reported - Past Family History Mother Family Medical History: Musculoskeletal Disorder Additional Family Medical History / Comment(s): Mother had severe arthiritis and of parkinsons disease. Father Family Medical History: Myocardial Infarction ([place]) Additional Family Medical History / Comment(s): Father at age 53yrs of [place] General Exam - General Exam Comments Initial Comments: Physical Exam GENERAL: Patient is well-developed and well-nourished. Appears anxious and uncomfortable HENT: Normocephalic, Atraumatic. EYES: PERRL, EOMI PULMONARY: Unlabored respirations. No audible rales rhonchi or wheezing was noted. CARDIOVASCULAR: There is a regular rate and rhythm without any murmurs gallops or rubs. 2+ lower extremity edema ABDOMEN: Soft and nontender with normal bowel sounds. SKIN: Skin is clear with no lesions or rashes and otherwise unremarkable. : Deferred NEUROLOGIC: Patient is alert and oriented x3. Moving all extremities spontaneously MUSCULOSKELETAL: Normal extremities with adequate strength and full range of motion. PSYCHIATRIC: Normal psychiatric evaluation. Course Vital Signs 08/30/20 08/30/20 08/30/20 23:00 23:01 23:15 Temperature 98.1 F Pulse Rate 80 79 79 Respiratory 17 18 18 Rate Blood Pressure 119/63 131/73 121/61 O2 Sat by Pulse 98 97 99 Oximetry 08/30/20 08/30/20 23:30 23:45 Temperature Pulse Rate 95 85 Respiratory 18 18 Rate Blood Pressure 127/81 130/70 O2 Sat by Pulse 97 98 Oximetry Chest Pain MDM - MDM The patient was seen and evaluated immediately upon arrival in the emergency department A 85-year-old female with history of coronary artery disease presenting with sudden onset of chest pain EKG was obtained at 2255 and is very concerning for acute ischemia Full workup was initiated Patient reports improvement in chest pain after Nitro and ASA Repeat EKG was obtained and again concerning for acute ischemia Cardiology on-call was paged Patient care was discussed with Dr Parra who reviewed EKGs and previous Patient reports pain is returning, Nitro paste and heparin ordered Dr. Parra requests Dr Espino be paged Patient with worsening pain, Morphine ordered Dr. Parra recommends activation of the [facility] activated Dr Espino at bedside to take patient to recyclable products sorter Disposition Clinical Impression: Acute non-ST elevation myocardial infarction (NSTEMI) Disposition: ADMITTED IP TO THIS HOSP Condition: Serious Is patient prescribed a controlled substance at d/c from ED?: No
[2020-08-30 23:07] LABS: Basophils # (A) 0.1 k/uL (0-0.2); Basophils % (A) 1 %; Eosinophils # (A) 0.4 k/uL (0-0.7); Eosinophils % (A) 4 %; HCT 38.6 % (34.0-46.0); HGB 12.7 gm/dL (11.4-16.0); Lymphocytes # (A) 4.9 k/uL (1.0-4.8); Lymphocytes % (A) 46 %; MCH 29.5 pg (25.0-35.0); MCHC 32.9 g/dL (31.0-37.0); MCV 89.8 fL (80.0-100.0); Mean Platelet Volume 7.8; Monocytes # (A) 0.6 k/uL (0-1.0); Monocytes % (A) 6 %; Neutrophils # (A) 4.3 k/uL (1.3-7.7); Neutrophils % (A) 41 %; Platelet Count 304 k/uL (150-450); RDW 14.6 % (11.5-15.5); WBC 10.6 k/uL (3.8-10.6)
[2020-08-30 23:18] LABS: Albumin 3.8 g/dL (3.5-5.0); Calcium 9.1 mg/dL (8.4-10.2); Magnesium 2.1 mg/dL (1.6-2.3); Potassium 4.7 mmol/L (3.5-5.1); Total Bilirubin 0.3 mg/dL (0.2-1.3); Total Protein 6.3 g/dL (6.3-8.2)
[2020-08-30 23:22] LABS: Prothrombin Time 10.8 sec (9.0-12.0)
--- NOTE | 2020-08-30 23:35 | XR ---
EXAMINATION TYPE: XR chest 2V DATE OF EXAM: 08/30/2020 COMPARISON: 05/03/2020 HISTORY: Chest pain TECHNIQUE: FINDINGS: There is some linear density at the lung bases consistent with atelectasis. There is slight elevated right diaphragm. There is no heart failure. Heart size is normal. There are no hilar masses . IMPRESSION: There is atelectasis at the lung bases increased compared to old exam. Normal heart.
[2020-08-30] MEDS ORDERED: MORPHINE SULFATE 4 MG/ML SYRINGE IVP STA (23:36)
[2020-08-30 23:43] LABS: Partial Thromboplastin Time 21.5 sec (22.0-30.0)
--- NOTE | 2020-08-31 00:14 | P.CRDCN ---
History of Present Illness Consult date: 08/31/20 History of present illness: HISTORY OF PRESENTING ILLNESS This is a pleasant 85-year-old female past medical history significant for hypertension, hyperlipidemia, coronary artery disease with PCI to her LAD 04/30/2020 who presents secondary to ongoing chest discomfort. She was sitting at home resting when she started having chest pain. Pain is retrosternal and associated with some shortness of breath. She admits this feels somewhat similar to her last episode in April. She had stenting to her mid LAD in April with a distal dissection however was fairly small caliber vessel. She also had disease of the diagonal and OM 1 branch. She had an echocardiogram performed at that time which showed ejection fraction 20-25% with moderate mitral regurgitation and pulmonary hypertension with RVSP 58. She did receive nitroglycerin with mild improvement in her chest pain. She had initial EKGs performed which showed diffuse ST depressions with ongoing chest pain and t herefore cardiology was paged. DIAGNOSTICS EKG reveals sinus rhythm, diffuse downsloping ST depressions 1 aVL and V4 through V6. Chest xray atelectasis and otherwise no acute process. Laboratory reviewed, troponin 0.092, sodium 133, creatinine 1.44, white blood cell 10.6, hemoglobin 12.7, platelets 304. Home medications include metoprolol 25 mg daily, losartan 100 mg daily, Lasix 20 mg daily, Plavix 75 mg daily, Lipitor 80 mg daily, aspirin 81 mg daily REVIEW OF SYSTEMS At the time of my exam: CONSTITUTIONAL: Denies fever or chills. CARDIOVASCULAR: +chest pain, +shortness of breath, no orthopnea, PND or palpitations. RESPIRATORY: Denies cough. GASTROINTESTINAL: Denies abdominal pain, diarrhea, constipation, nausea or vomiting. MUSCULOSKELETAL: Denies myalgias. NEUROLOGIC: Denies numbness, tingling or weakness. ENDOCRINE: Denies fatigue, weight change, polydipsia or polyurina. GENITOURINARY: Denies burning, hematuria or urgency with micturation. HEMATOLOGIC: Denies history of anemia or bleeding. PHYSICAL EXAMINATION Blood pressure 121/61 heart rate 79 afebrile and maintaining oxygen saturation on room air. CONSTITUTIONAL: Mild distress. HEENT: Head is normocephalic. Pupils are equal, round. Sclerae anicteric. Mucous membranes of the mouth are moist. No JVD. No carotid bruit. CHEST EXAMINATION: Lungs are clear to auscultation. No chest wall tenderness is noted on palpation or with deep breathing. HEART EXAMINATION: Regular rate and rhythm. S1, S2 heard. No murmurs, gallops or rub. ABDOMEN: Soft, nontender. Positive bowel sounds. EXTREMITIES: 2+ peripheral pulses, no lower extremity edema and no calf tenderness. NEUROLOGIC EXAMINATION: Patient is awake, alert and oriented x3. ASSESSMENT 1. Non-STEMI with ongoing chest pain and diffuse ST depressions 2. History of coronary artery disease with PCI to the mid LAD with a resultant dissection. Residual diagonal disease as well as OM1 disease 3. Ischemic cardiomyopathy with prior ejection fraction 20-25%. 4. Hypertension 5. Hyperlipidemia 6. Chronic kidney disease 3b 7. Pulmonary hypertension likely group 2 by prior echo PLAN Given ongoing chest pain we will take patient urgently for left heart cathet erization. Continue aspirin and Plavix. Check 2-D echo. Further recommendations to follow. Past Medical History Past Medical History: Hypertension, Osteoarthritis (OA) Additional Past Medical History / Comment(s): currently having SOB and fatigue,Hx Ball's Palsy, heart stent LAD x1 04/30/20 History of Any Multi-Drug Resistant Organisms: None Reported Past Surgical History: Breast Surgery, Hysterectomy, Joint Replacement, Orthopedic Surgery Additional Past Surgical History / Comment(s): 03/31/15 Total L hip Arthroplasty. R breast biopsy-benign. Arthroscopy Left knee.ANT. TRH 09/11 Past Anesthesia/Blood Transfusion Reactions: No Reported Reaction Additional Past Anesthesia/Blood Transfusion Reaction / Comment(s): takes awhile to wake up,no hx blood transfusion Past Psychological History: No Psychological Hx Reported Additional Psychological History / Comment(s): Pt lives at home with spouse. She is normally independent. She would like a walker for discharge. She drives a car. Past Alcohol Use History: None Reported Past Drug Use History: None Reported - Past Family History Mother Family Medical History: Musculoskeletal Disorder Additional Family Medical History / Comment(s): Mother had severe arthiritis and of parkinsons disease. Father Family Medical History: Myocardial Infarction ([place]) Additional Family Medical History / Comment(s): Father at age 53yrs of [place] Medications and Allergies Home Medications Medication Instructions Recorded Confirmed Type Fluticasone Nasal [place] [Flonase 2 spr EA NOSTRIL DAILY 04/29/20 04/30/20 History Nasal [place]] Losartan Potassium [Cozaar] 100 mg PO DAILY 04/29/20 04/30/20 History Metoprolol Tartrate 25 mg PO QAM 04/29/20 04/30/20 History Aspirin 81 mg PO QAM chew 05/04/20 Rx Atorvastatin [Lipitor] 80 mg PO HS tab 05/04/20 Rx Clopidogrel [Plavix] 75 mg PO DAILY #0 tab 05/04/20 Rx Furosemide [Lasix] 20 mg PO DAILY tab 05/04/20 Rx Nitroglycerin Sl Tabs [Nitrostat] 0.4 mg SUBLINGUAL Q5M PRN tab 05/04/20 Rx Potassium Chloride ER [K-Dur 20] 20 meq PO DAILY tab.er.prt 05/04/20 Rx Allergies Allergy/AdvReac Type Severity Reaction Status Date / Time Ztbvknz-Niy-Gee Reductase Allergy Rash/Hives, Verified 04/30/20 06:43 Inhibitor PAIN Physical Exam Vitals: Vital Signs Temp Pulse Resp BP Pulse Ox 08/31/20 00:00 79 18 121/61 99 08/30/20 23:01 98.1 F 79 18 131/73 97 Intake and Output 08/30/20 08/30/20 08/31/20 14:59 22:59 06:59 Other: Weight 63.503 kg Results 08/30/20 22:59 08/30/20 22:59 Cardiac Enzymes 08/30/20 08/30/20 Range/Units 22:59 22:59 AST 30 (14-36) U/L Troponin I 0.092 H* (0.000-0.034) ng/mL Coagulation 08/30/20 Range/Units 22:59 PT 10.8 (9.0-12.0) sec APTT 21.5 L (22.0-30.0) sec CBC 08/30/20 Range/Units 22:59 WBC 10.6 (3.8-10.6) k/uL RBC 4.30 (3.80-5.40) m/uL Hgb 12.7 (11.4-16.0) gm/dL Hct 38.6 (34.0-46.0) % Plt Count 304 (150-450) k/uL Comprehensive Metabolic Panel 08/30/20 Range/Units 22:59 Sodium 133 L (137-145) mmol/L Potassium 4.7 (3.5-5.1) mmol/L Chloride 102 (98-107) mmol/L Carbon Dioxide 24 (22-30) mmol/L BUN 31 H (7-17) mg/dL Creatinine 1.44 H (0.52-1.04) mg/dL Glucose 117 H (74-99) mg/dL Calcium 9.1 (8.4-10.2) mg/dL AST 30 (14-36) U/L ALT 19 (4-34) U/L Alkaline Phosphatase 88 (38-126) U/L Total Protein 6.3 (6.3-8.2) g/dL Albumin 3.8 (3.5-5.0) g/dL Current Medications Generic Name Dose Route Start Last Admin Trade Name Freq PRN Reason Stop Dose Admin Heparin Sodium (Porcine) 0 unit 08/30/20 22:59 Heparin Sodium,Porcine 5,000 Unit/Ml 1 Ml Vial IV PER PROTOCOL PRN Low PTT Protocol Heparin Sodium/Sodium Chloride 250 mls @ 7.62 mls/hr 08/30/20 23:00 25,000 unit/ Sodium Chloride IV .Q24H PASQUALE Protocol 12 UNITS/KG/HR Intake and Output 08/30/20 08/30/20 08/31/20 14:59 22:59 06:59 Other: Weight 63.503 kg Patient Weight 08/31/20 06:59 Weight 63.503 kg 08/30/20 22:59 08/30/20 22:59
[2020-08-31] MEDS ORDERED: IV FLUID CONTINUATION 1,000 ML IV ONE (00:15)
[2020-08-31] MEDS ORDERED: fentaNYL (PF) 50 MCG/ML 2 ML AMP ONE (00:17)
[2020-08-31] MEDS ORDERED: VERAPAMIL 2.5 MG/ML 2 ML AMP ONE (00:19)
[2020-08-31] MEDS ORDERED: LIDOCAINE 1% INJ 10MG/ML (20 ML MDV) SQ ONE (00:21)
[2020-08-31] MEDS ORDERED: MIDAZOLAM 2 MG/2 ML VIAL IV ONE (00:21)
[2020-08-31] MEDS ORDERED: fentaNYL (PF) 50 MCG/ML 2 ML AMP IV ONE (00:21)
[2020-08-31] MEDS ORDERED: VERAPAMIL SYRINGE (5 MG/10 ML) INTRAARTER ONE (00:25)
[2020-08-31] MEDS ORDERED: HEPARIN SODIUM 1,000 UN/ML (10ML VL) IV ONE (00:39)
[2020-08-31] MEDS ORDERED: IOPAMIDOL-370 125ML BTL INJ ONE (01:02)
[2020-08-31] MEDS ORDERED: IOPAMIDOL-370 100ML BTL INJ ONE (01:26)
[2020-08-31 01:53] LABS: Glucose,Whole Blood 126 mg/dL (75-99)
[2020-08-31] MEDS ORDERED: RX INFO: IV CONTRAST WAS GIVEN 1 EACH MISC MISCELLANE PRN (01:57)
[2020-08-31] MEDS ORDERED: ATROPINE SULFATE 0.1 MG/ML 10ML SYRINGE IV PRN (01:57)
[2020-08-31] MEDS ORDERED: ZOLPIDEM 5 MG TAB PO PRN (01:57)
[2020-08-31] MEDS ORDERED: NITROGLYCERIN SL TABS 0.4 MG TAB SUBLINGUAL PRN (01:57)
[2020-08-31] MEDS ORDERED: MAG HYDROX/AL HYDROX/SIMETH 30 ML CUP PO PRN (01:57)
--- NOTE | 2020-08-31 01:57 | P.PRCINT ---
Percutaneous Coronary Int. - Percutaneous Coronary Intervention Percutaneous Coronary Intervention: PROCEDURES PERFORMED: Bilateral coronary angiography, successful PCI of proximal OM 1 with a 2.25 x 15mm Xience BAY, PTCA of superior and inferior branch of OM1, PCI of proximal to mid diagonal to with a 2.0 x 22 mm Isaiah drug-eluting stent. INDICATION: Non-STEMI with persistent chest pain HISTORY: Patient is a pleasant 85-year-old female with history of hypertension, hyperlipidemia, CKD, ischemic cardiomyopathy with prior ejection fraction 25-35% coronary artery disease with previous stenting to her mid LAD in April 2020 and residual OM1 and diagonal to stenosis. 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 Given ongoing chest pain with diffuse ST depressions, decision was made to proceed with heart catheterization. PROCEDURE: After the risks, benefits and alternatives of the above mentioned procedure explained in detail with the patient, informed consent was obtained. 2% lidocaine was used to anesthetize the right radial artery. Using modified Seldinger technique, a 6-Welsh sheath was placed. Diagnostic angiography was performed of the right and left coronary arteries with a 5-Welsh FR5 and FL 3.5 catheters respectively. The LAD was thought to be old with some collaterals and therefore that the decision was made to intervene on the OM 2 and possibly diagonal branch. Heparin was given. A 6Fr CLS 3.5 guide catheter was used to engage the left main. A 0.014 whisper wire was advanced into the superior branch of OM1. PTCA was performed on OM1 using a 2.0 by 12 mm balloon. Next a 0.014 BMW wire was advanced into the inferior branch of OM1. Again balloon angiography was performed with the 2.0 x 12 mm balloon. Next, a 2.25 x 15 mm Xience BAY was deployed at the proximal OM1 just prior to the bifurcation of the superior and inferior branches of OM1. The stent was then post dilated with a 2.5 x 8 NC balloon proximally. Preintervention there was a 100% proximal to mid OM 1 stenosis with diffuse disease of the superior and inferior branch of OM1 and VANIA 0 flow and post intervention there was 0 % residual stenosis and VANIA 3 flow without evidence of dissection. At the site of POBA, there was residual 20% stenosis however this was small caliber with VANIA 3 flow and felt best treated medically with a good result. The wire was removed and final angiograms were taken. Patient was still having mild chest pain and therefore the decision was made to perform PCI of the diagonal 2 branch secondary to it appearing to have progressed from prior films and ongoing chest pain. Therefore the 0.014 BMW wire was advanced into the diagonal 2 branch. The lesion was predilated with a 2.0 x 12 mm balloon. A 2.0 x 22 mm [place] BAY was deployed from the proximal to mid diagonal 2. Preintervention there was VANIA 2 flow and 95% stenosis and post intervention there was 10% distal edge stenosis and VANIA-3 flow without dissection. The wire was then pulled and final angiography was performed. The right radial sheath was removed and a TR band was placed with hemostasis achieved. The patient tolerated the procedure well. Patient was transported back to the post catheterization holding area in stable condition. Conscious Sedation: Patient was monitored under the direct supervision of vision of myself for conscious sedation using Versed and fentanyl for a total duration of 68 minutes HEMODYNAMICS: 95/62 SELECTIVE CORONARY ARTERIOGRAPHY: LEFT MAIN: The left main is a large caliber vessel which bifurcates into the LAD and circumflex. There is no significant stenosis. LEFT ANTERIOR DESCENDING CORONARY ARTERY: LAD is a large caliber vessel which wraps around to the apex. There is a mid LAD stent which is 100% occluded. There are mild left to left collaterals filling the distal LAD. Diagonal 1 is very small caliber with mild to moderate disease. Diagonal 2 is small caliber with a 95% stenosis. LEFT CIRCUMFLEX CORONARY ARTERY: Left circumflex is a moderate caliber vessel. It gives off a small to moderate OM1 branch which then gives off a superior and inferior branch. OM1 has a 100% stenosis proximally and there is diffuse disease of 70-90% stenosis of the superior and inferior branch. RIGHT CORONARY ARTERY: The right coronary artery is a large caliber vessel which gives off a PDA and PLV branch and is the dominant vessel. There is a proximal RCA 30% stenosis, mid 40% stenosis and distal 30% stenosis. There are right to left collaterals, mainly to OM1 and to the LAD through septals. FINAL IMPRESSION: 1. Coronary artery disease as described above including mid LAD stent 100% stenosed, diagonal to 95% stenosis, OM1 100% stenosis. 2. Status post successful PCI of proximal OM 1 with a 2.25 x 15mm Xience BAY, PTCA of superior and inferior branch of OM1, PCI of proximal to mid diagonal to with a 2.0 x 22 mm Isaiah drug-eluting stent. 3. Culprit lesion thought to be OM1 vs diagonal 2 with resolution of chest pain at the end of the procedure. LAD occlusion thought to be old with prior history of LAD dissection. PLAN: 1. Aggressive risk factor modification per most recent ACC/AHA guidelines. 2. Check 2-D echo. 3. IVF given CKD
[2020-08-31] MEDS ORDERED: SODIUM CHLORIDE 0.9% 1,000 ML IV SCH (02:15)
[2020-08-31 04:18] LABS: Basophils # (A) 0.1 k/uL (0-0.2); Basophils % (A) 1 %; Eosinophils # (A) 0.1 k/uL (0-0.7); Eosinophils % (A) 1 %; HCT 38.8 % (34.0-46.0); HGB 12.7 gm/dL (11.4-16.0); Lymphocytes # (A) 2.8 k/uL (1.0-4.8); Lymphocytes % (A) 21 %; MCH 30.2 pg (25.0-35.0); MCHC 32.7 g/dL (31.0-37.0); MCV 92.5 fL (80.0-100.0); Mean Platelet Volume 8.1; Monocytes # (A) 0.7 k/uL (0-1.0); Monocytes % (A) 5 %; Neutrophils # (A) 9.1 k/uL (1.3-7.7); Neutrophils % (A) 70 %; Platelet Count 242 k/uL (150-450); RDW 14.3 % (11.5-15.5)
[2020-08-31] MEDS ORDERED: ATORVASTATIN 80 MG TAB PO SCH (09:00)
[2020-08-31] MEDS ORDERED: METOPROLOL TARTRATE 25 MG TAB PO SCH (09:00)
[2020-08-31] MEDS: ASPIRIN 81 MG PO SCH (09:55)
[2020-08-31] MEDS: ATORVASTATIN 40 MG TAB PO SCH (09:55)
[2020-08-31] MEDS ORDERED: METOPROLOL TARTRATE 12.5 MG TAB PO SCH (10:00)
[2020-08-31 10:11] VITALS: BMI 29.0
--- NOTE | 2020-08-31 11:17 | P.PN ---
Subjective Progress Note Date: 08/31/20 This is a pleasant 85-year-old female with past medical history significant for hypertension, hyperlipidemia, coronary artery disease with prior PCI to her LAD in April 2020, she presented to the hospital with ongoing chest discomfort, was seen in consultation by Dr. Espino. Patient was taken to the cardiac catheterization lab where she underwent angioplasty and stenting of the OM1 and diagonal branch. White blood cell count 13.0, hgb 12.7, hct 38.8, plt 202. Creatinine this morning 1.2 which is down from 1.4 yesterday. Initial troponin on presentation was 0.092, 1.9 this morning. Patient was seen and examined this morning in the intensive care unit, denies any chest discomfort. Blood pressure 106/50 with a heart rate in the 60s, 93% on room air. Patient states she has had some issues with statins in the past giving her muscle aching, we will put her on 40 mg of Lipitor daily, she had been taking it 3 times a week previously. We will also resume her beta luciano at 25 mg daily. Start 12-1/2 mg of losartan daily. Continue the baby aspirin and Plavix. Objective - Vital Signs Vital signs: Vital Signs Temp 97.9 F 08/31/20 08:00 Pulse 69 08/31/20 10:00 Resp 18 08/31/20 10:00 BP 106/50 08/31/20 10:00 Pulse Ox 93 L 08/31/20 10:00 Intake & Output 08/30/20 08/31/20 08/31/20 18:59 06:59 18:59 Intake Total 575 Balance 575 Weight 67.5 kg 67.5 kg Intake: IV 200 Intake, IV Titration 375 Amount Sodium Chloride 0.9% 1, 375 000 ml @ 75 mls/hr IV . [id number] [facility] Rx#:[id number] Other: Voiding Method Bedpan Toilet # Voids 1 1 - Exam PHYSICAL EXAMINATION: GENERAL: 85-year-old female in no acute distress at the time of my examination HEENT: Head is atraumatic, normocephalic. Pupils equal, round. Sclera anicteric. Conjunctiva are clear. Mucous membranes of the mouth are moist. Neck is supple. There is no elevated jugular venous pressure. No carotid bruit is heard. HEART EXAMINATION: Heart S1, S2 normal. No murmur or gallop heard. CHEST EXAMINATION: Lungs are clear to auscultation and precussion. No chest wall tenderness is noted on palpation or with deep breathing. ABDOMEN: Soft, nontender. Bowel sounds are heard. No organomegaly noted. EXTREMITIES: 2+ peripheral pulses with no evidence of peripheral edema and no calf tenderness noted. Right radial site clean and dry, good distal pulse NEUROLOGIC patient is awake, alert and oriented 3 . . - Labs CBC & Chem 7: 08/31/20 03:38 08/31/20 03:38 Labs: Abnormal Lab Results - Last 24 Hours (Table) 08/30/20 08/30/20 08/30/20 Range/Units 22:59 22:59 22:59 WBC (3.8-10.6) k/uL Neutrophils # (1.3-7.7) k/uL Lymphocytes # 4.9 H (1.0-4.8) k/uL APTT 21.5 L (22.0-30.0) sec Sodium 133 L (137-145) mmol/L BUN 31 H (7-17) mg/dL Creatinine 1.44 H (0.52-1.04) mg/dL Glucose 117 H (74-99) mg/dL POC Glucose (mg/dL) (75-99) mg/dL Troponin I (0.000-0.034) ng/mL 08/30/20 08/31/20 08/31/20 Range/Units 22:59 01:51 03:38 WBC (3.8-10.6) k/uL Neutrophils # (1.3-7.7) k/uL Lymphocytes # (1.0-4.8) k/uL APTT 52.3 H (22.0-30.0) sec Sodium (137-145) mmol/L BUN (7-17) mg/dL Creatinine (0.52-1.04) mg/dL Glucose (74-99) mg/dL POC Glucose (mg/dL) 126 H (75-99) mg/dL Troponin I 0.092 H* (0.000-0.034) ng/mL 08/31/20 08/31/20 08/31/20 Range/Units 03:38 03:38 08:31 WBC 13.0 H (3.8-10.6) k/uL Neutrophils # 9.1 H (1.3-7.7) k/uL Lymphocytes # (1.0-4.8) k/uL APTT (22.0-30.0) sec Sodium (137-145) mmol/L BUN (7-17) mg/dL Creatinine 1.28 H (0.52-1.04) mg/dL Glucose (74-99) mg/dL POC Glucose (mg/dL) (75-99) mg/dL Troponin I 1.930 H* (0.000-0.034) ng/mL Assessment and Plan Plan: Assessment and plan #1 non-ST elevation myocardial infarction status post stenting of the OM1 and diagonal #2 history of coronary artery disease with prior mid LAD stenting with resultant dissection. #3 ischemic cardiomyopathy with prior documented ejection fraction of 20-25% #4 hypertension #5 hyperlipidemia #6 chronic kidney disease Plan We will put the patient on Lipitor 40 mg daily, start the patient on Lopressor 25 mg daily instead of the 50 and 25 that she was on previously. We will also put the patient on a small dose of angiotensin luciano at 12-1/2 mg daily. Continue Plavix and aspirin. Review the repeat echocardiogram with Doppler study. DNP note has been reviewed, I agree with a documented findings and plan of care. Patient was seen and examined.
--- NOTE | 2020-08-31 12:57 | ECHOF ---
Referral Reason:s/p nstemi, stent placement, assess lvf. MEASUREMENTS -------- HEIGHT: 152.4 cm WEIGHT: 67.1 kg BP: RVIDd: 2.2 cm (< 3.3) IVSd: 1.5 cm (0.6 - 1.1) LVIDd: 4.7 cm (3.9 - 5.3) LVPWd: 1.0 cm (0.6 - 1.1) IVSs: 1.3 cm LVIDs: 4.0 cm LVPWs: 1.3 cm LAESV Index (A-L): 19.91 ml/m Ao Diam: 2.5 cm (2.0 - 3.7) AV Cusp: 0.9 cm (1.5 - 2.6) LA Diam: 3.4 cm (2.7 - 3.8) MV EXCURSION: 15.293 mm (> 18.000) MV EF SLOPE: 58 mm/s (70 - 150) EPSS: 0.8 cm MV E Venancio: 1.03 m/s MV DecT: 254 ms MV A Venancio: 0.98 m/s MV E/A Ratio: 1.04 AV maxP.78 mmHg AV meanP.63 mmHg RAP: 5.00 mmHg RVSP: 50.21 mmHg FINDINGS -------- This was a technically good study. The left ventricular size is normal. Overall left ventricular systolic function is severely impaire d with, an EF between 25 - 30 %. Mid to apical septum appears thin consistent with scar. The remai roselia wall thickness is normal. Increased LAP Grade 2 Diastolic Dysfunction. Basal Segments Contrac ting only. The right ventricle is normal in size. The left atrial size is normal. Normal LA size by volume 22+/-6 ml/m2. The right atrial size is normal. Aortic valve is trileaflet and is moderately thickened. There is moderate aortic stenosis present. Peak/mean gradient across the Aortic Valve is 20.78mmHg / 12.63mmHg. The mitral valve is normal. The mitral valve leaflets are mildly thickened. Xurpnctf-ri-nhirft mi tral regurgitation is present. The tricuspid valve appears structurally normal. Severe tricuspid regurgitation present. There is moderate pulmonary hypertension. The right ventricular systolic pressure, as measured by Doppler, is 50.21mmHg. Trace/mild (physiologic) pulmonic regurgitation. The aortic root size is normal. Normal inferior vena cava with normal inspiratory collapse consistent with estimated right atrial pre ssure of 5 mmHg. There is no pericardial effusion. CONCLUSIONS -------- 1. The left ventricular size is normal. 2. Overall left ventricular systolic function is severely impaired with, an EF between 25 - 30 %. 3. Sigmoid shaped septum with focal hypertrophy of the basal septum. The remaining wall thickness is normal. 4. Increased LAP Grade 2 Diastolic Dysfunction. 5. Basal Segment Constance only. 6. Aortic valve is trileaflet and is moderately thickened. 7. There is moderate aortic stenosis present. 8. Peak/mean gradient across the Aortic Valve is 20.78mmHg / 12.63mmHg. 9. The mitral valve leaflets are mildly thickened. 10. Severe tricuspid regurgitation present. 11. There is moderate pulmonary hypertension. 12. The right ventricular systolic pressure, as measured by Doppler, is 50.21mmHg. 13. Trace/mild (physiologic) pulmonic regurgitation. 14. There is no pericardial effusion. FINANCE ASSOCIATE: Katelyn Worley RDCS
--- NOTE | 2020-08-31 14:32 | P.HPIM ---
History of Present Illness H&P Date: 08/31/20 Chief Complaint: Chest pain History of presenting complaint: This is a pleasant 85-year-old patient of Dr. Delaney. Chronic stable medical conditions include hypertension, osteoarthritis, chronic kidney disease. Patient around 10 PM last night started having her entire chest hurting. Lasting for quite some time. Patient started breaking out in a sweat and nausea. Pain radiating to the sides of the chest. Tired rundown. Presented to the ER. Troponins became positive. Ruled in for acute non-Q-wave IA. Taken to the cardiac catheterization lab. Had a stent to the OM place. In April of this year patient had a stent of the LAD. Patient's creatinine was 0.8 on May 04 and on June 03 it was 1.4. On April 30 patient had a stent to the LAD placed by Dr. KVNG Carias. Patient's 2-D echocardiogram at that time showed EF of 20-25%. Currently the ICU. No chest pain Review of systems: GEN.: Tired EYES: None HEENT: None NECK: None RESPIRATORY: None CARDIOVASCULAR: As above GASTROINTESTINAL: None GENITOURINARY: None MUSCULOSKELETAL: Joint pains LYMPHATICS: None HEMATOLOGICAL: None PSYCHIATRY: None NEUROLOGICAL: None Past medical history: Coronary artery disease with stent to LAD in April of this year, hypertension, osteoarthritis, Pena's palsy Social history: Lives alone. No history of smoking or alcohol. Physical examination: VITAL SIGNS: 98.1, 79, 18, 131/73, 97% room air upon presentation GENERAL: BMI 29.1, sitting up in chair, not in distress. EYES: Pupils equal. Conjunctiva normal. HEENT: External appearance of nose and ears normal, oral cavity grossly normal. NECK: JVD not raised; masses not palpable. HEART: First and second heart sounds are normal; no edema. LUNGS:[ Respiratory rate normal; decreased breath sounds. ABDOMEN: Soft, nontender, liver spleen not palpable, no masses palpable. PSYCH: Alert and oriented x3; mood and affect normal. MUSCULAR skeletal: Evidence of OA NEUROLOGICAL: Cranial nerves grossly intact; no facial asymmetry, power and sensation grossly intact. LYMPHATICS: No lymph nodes palpable in the axilla and neck INVESTIGATIONS, reviewed in the clinical context: White count 10.6 hemoglobin 12.7 potassium 4.7 bun 31 and creatinine 1.44 Troponin I 0.092, 1.9, 2.2 EKG tracing personally reviewed by me-decrease ST segment and flipped T waves from lead V2 to V6 and one in aVL Chest x-ray film personally reviewed by me-possibly some chronic changes, elevated right diaphragm 2-D echocardiogram-EF 25-30%, moderate aortic stenosis, severe tricuspid regurgitation, moderate pulmonary hypertension Assessment: -Acute non-Q-wave myocardial infarction -Cardiac catheterization with a stent to the OM 1 -Coronary artery disease with prior stent to the LAD -Primary osteoarthritis -Essential hypertension -Chronic kidney disease stage III likely nephrosclerosis -Chronic congestive heart failure 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 Discussed with the patient. Questions answered. Keep a close eye on renal function. Patient seen by Dr. Espino from interventional cardiology. Past Medical History Past Medical History: Hypertension, Osteoarthritis (OA) Additional Past Medical History / Comment(s): currently having SOB and fatig ue,Hx Ball's Palsy, heart stent LAD x1 04/30/20 Last Myocardial Infarction Date:: 08/30/2020 History of Any Multi-Drug Resistant Organisms: None Reported Past Surgical History: Breast Surgery, Hysterectomy, Joint Replacement, Orthopedic Surgery Additional Past Surgical History / Comment(s): 03/31/15 Total L hip Arthroplasty. R breast biopsy-benign. Arthroscopy Left knee.ANT. TRH 09/11 Past Anesthesia/Blood Transfusion Reactions: No Reported Reaction Additional Past Anesthesia/Blood Transfusion Reaction / Comment(s): takes awhile to wake up,no hx blood transfusion Past Psychological History: No Psychological Hx Reported Additional Psychological History / Comment(s): Pt lives at home with spouse. She is normally independent. She would like a walker for discharge. She drives a car. Past Alcohol Use History: None Reported Past Drug Use History: None Reported - Past Family History Mother Family Medical History: Musculoskeletal Disorder Additional Family Medical History / Comment(s): Mother had severe arthiritis and of parkinsons disease. Father Family Medical History: Myocardial Infarction (IA) Additional Family Medical History / Comment(s): Father at age 53yrs of IA Medications and Allergies Home Medications Medication Instructions Recorded Confirmed Type Fluticasone Nasal [place] [Flonase 2 spray EA NOSTRIL DAILY PRN 04/29/20 08/31/20 History Nasal [place]] Losartan Potassium [Cozaar] 100 mg PO DAILY 04/29/20 08/31/20 History Metoprolol Tartrate 50 mg PO DAILY 04/29/20 08/31/20 History Clopidogrel [Plavix] 75 mg PO DAILY #0 tab 05/04/20 08/31/20 Rx Furosemide [Lasix] 20 mg PO DAILY tab 05/04/20 08/31/20 Rx Nitroglycerin Sl Tabs [Nitrostat] 0.4 mg SUBLINGUAL Q5M PRN tab 05/04/20 08/31/20 Rx Aspirin EC [Ecotrin Low Dose] 81 mg PO DAILY 08/31/20 08/31/20 History Atorvastatin [Lipitor] 40 mg PO MOWEFR@2100 08/31/20 08/31/20 History Metoprolol Tartrate [Lopressor] 25 mg PO HS 08/31/20 08/31/20 History Spironolactone [Aldactone] 25 mg PO DAILY 08/31/20 08/31/20 History Allergies Allergy/AdvReac Type Severity Reaction Status Date / Time [id number] Reductase Allergy Rash/Hives, Verified 08/31/20 08:01 Inhibitor PAIN Physical Exam Vitals: Vital Signs Temp Pulse Pulse Resp BP BP Pulse Ox 08/31/20 10:00 69 18 106/50 93 L 08/31/20 09:00 75 10 L 118/60 95 08/31/20 08:00 97.9 F 71 12 106/57 96 08/31/20 07:00 73 19 95/51 97 08/31/20 06:00 70 19 91/50 98 08/31/20 05:00 68 16 91/49 97 08/31/20 04:00 72 19 115/64 95 08/31/20 03:00 82 17 109/70 94 L 08/31/20 02:00 81 19 106/70 93 L 08/31/20 01:58 97.4 F L 15 106/70 93 L 08/31/20 01:50 85 20 08/31/20 00:10 97.4 F L 80 16 109/70 93 L 08/31/20 00:00 84 17 127/70 97 08/30/20 23:45 85 18 130/70 98 08/30/20 23:30 95 18 127/81 97 08/30/20 23:15 79 18 121/61 99 08/30/20 23:01 98.1 F 79 18 131/73 97 08/30/20 23:00 80 17 119/63 98 Intake and Output 08/30/20 08/31/20 08/31/20 22:59 06:59 14:59 Intake Total 575 Balance 575 Intake: IV 200 Intake, IV Titration 375 Amount Sodium Chloride 0.9% 1, 375 000 ml @ 75 mls/hr IV . [id number] [facility] Rx#:[id number] Other: Voiding Method Bedpan # Voids 1 1 Weight 67.5 kg 67.5 kg Results CBC & Chem 7: 08/31/20 03:38 08/31/20 03:38 Labs: Abnormal Lab Results - Last 24 Hours (Table) 08/30/20 08/30/20 08/30/20 Range/Units 22:59 22:59 22:59 WBC (3.8-10.6) k/uL Neutrophils # (1.3-7.7) k/uL Lymphocytes # 4.9 H (1.0-4.8) k/uL APTT 21.5 L (22.0-30.0) sec Sodium 133 L (137-145) mmol/L BUN 31 H (7-17) mg/dL Creatinine 1.44 H (0.52-1.04) mg/dL Glucose 117 H (74-99) mg/dL POC Glucose (mg/dL) (75-99) mg/dL Troponin I (0.000-0.034) ng/mL 08/30/20 08/31/20 08/31/20 Range/Units 22:59 01:51 03:38 WBC (3.8-10.6) k/uL Neutrophils # (1.3-7.7) k/uL Lymphocytes # (1.0-4.8) k/uL APTT 52.3 H (22.0-30.0) sec Sodium (137-145) mmol/L BUN (7-17) mg/dL Creatinine (0.52-1.04) mg/dL Glucose (74-99) mg/dL POC Glucose (mg/dL) 126 H (75-99) mg/dL Troponin I 0.092 H* (0.000-0.034) ng/mL 08/31/20 08/31/20 08/31/20 Range/Units 03:38 03:38 08:31 WBC 13.0 H (3.8-10.6) k/uL Neutrophils # 9.1 H (1.3-7.7) k/uL Lymphocytes # (1.0-4.8) k/uL APTT (22.0-30.0) sec Sodium (137-145) mmol/L BUN (7-17) mg/dL Creatinine 1.28 H (0.52-1.04) mg/dL Glucose (74-99) mg/dL POC Glucose (mg/dL) (75-99) mg/dL Troponin I 1.930 H* (0.000-0.034) ng/mL Thrombosis Risk Factor Assmnt - Choose All That Apply Each Factor Represents 1 point: Acute IA Thrombosis Risk Factor Assessment Total Risk Factor Score: 1 Thrombosis Risk Factor Assessment Level: Low Risk
[2020-09-01] MEDS: CLOPIDOGREL 75 MG TAB PO SCH ×2 (04:02→04:05)
[2020-09-01 06:37] LABS: Basophils % (A) 1 %; Eosinophils # (A) 0.4 k/uL (0-0.7); Eosinophils % (A) 4 %; HCT 35.6 % (34.0-46.0); HGB 11.4 gm/dL (11.4-16.0); Lymphocytes # (A) 2.4 k/uL (1.0-4.8); Lymphocytes % (A) 28 %; MCH 29.4 pg (25.0-35.0); MCV 91.7 fL (80.0-100.0); Monocytes # (A) 0.5 k/uL (0-1.0); Monocytes % (A) 6 %; Neutrophils # (A) 5.1 k/uL (1.3-7.7); Neutrophils % (A) 60 %; Platelet Count 253 k/uL (150-450); RBC 3.89 m/uL (3.80-5.40); RDW 14.7 % (11.5-15.5); WBC 8.5 k/uL (3.8-10.6)
[2020-09-01] MEDS ORDERED: FUROSEMIDE 10 MG/ML 2 ML VIAL IV SCH (09:00)
[2020-09-01] MEDS: FUROSEMIDE 10 MG/ML 2 ML VIAL IV SCH ×2 (09:25→20:33)
[2020-09-01] MEDS: LOSARTAN 25 MG TAB PO SCH (09:26)
[2020-09-01] MEDS: ATORVASTATIN 40 MG TAB PO SCH (09:26)
[2020-09-01] MEDS: ASPIRIN 81 MG PO SCH (09:26)
--- NOTE | 2020-09-01 09:44 | P.PN ---
Subjective Progress Note Date: 09/01/20 This is a pleasant 85-year-old female with past medical history significant for hypertension, hyperlipidemia, coronary artery disease with prior PCI to her LAD in April 2020, she presented to the hospital with ongoing chest discomfort, was seen in consultation by Dr. Espino. Patient was taken to the cardiac catheterization lab where she underwent angioplasty and stenting of the OM1 and diagonal branch. White blood cell count 13.0, hgb 12.7, hct 38.8, plt 202. Creatinine this morning 1.2 which is down from 1.4 yesterday. Initial troponin on presentation was 0.092, 1.9 this morning. Patient was seen and examined this morning in the intensive care unit, denies any chest discomfort. Blood pressure 106/50 with a heart rate in the 60s, 93% on room air. Patient states she has had some issues with statins in the past giving her muscle aching, we will put her on 40 mg of Lipitor daily, she had been taking it 3 times a week previously. We will also resume her beta luciano at 25 mg daily. Start 12-1/2 mg of losartan daily. Continue the baby aspirin and Plavix. 09/01/2020 Patient was seen and examined this morning, denied any chest discomfort and breathing is overall stable.echocardiogram with Doppler study was performed which revealed an ejection fraction of 25-30%. Severe tricuspid regurg and moderate pulmonary hypertension and moderate aortic stenosis. Patient was advi sed by Dr. Carias to have placement of a LifeVest. We will also put her on some IV Lasix today 10 mg twice a day IV, discontinue the metoprolol and change patient over to Coreg 3.125 mg one half tablet twice a day.blood pressure 130/60 with a heart rate in the 60s, 96% on room air.White blood cell count 8.5, hemoglobin 11.4, platelet count 253. Objective - Vital Signs Vital signs: Vital Signs Temp 98.2 F 09/01/20 08:00 Pulse 69 09/01/20 08:00 Resp 20 09/01/20 08:00 BP 131/68 09/01/20 08:00 Pulse Ox 96 09/01/20 08:00 Intake & Output 08/31/20 09/01/20 09/01/20 18:59 06:59 18:59 Weight 67.5 kg 66.8 kg Other: Voiding Method Toilet Toilet # Voids 1 1 # Bowel Movements 1 - Exam PHYSICAL EXAMINATION: GENERAL: 85-year-old female in no acute distress at the time of my examination HEENT: Head is atraumatic, normocephalic. Pupils equal, round. Sclera anicteric. Conjunctiva are clear. Mucous membranes of the mouth are moist. Neck is supple. There is no elevated jugular venous pressure. No carotid bruit is heard. HEART EXAMINATION: Heart S1, S2 normal. No murmur or gallop heard. CHEST EXAMINATION: Lungs are clear with fine rales to the bases. No chest wall tenderness is noted on palpation or with deep breathing. ABDOMEN: Soft, nontender. Bowel sounds are heard. No organomegaly noted. EXTREMITIES: 2+ peripheral pulses with no evidence of peripheral edema and no calf tenderness noted. Right radial site clean and dry, good distal pulse NEUROLOGIC patient is awake, alert and oriented 3 . . - Labs CBC & Chem 7: 09/01/20 05:36 08/31/20 03:38 Labs: Abnormal Lab Results - Last 24 Hours (Table) 08/31/20 Range/Units 11:59 Troponin I 2.240 H* (0.000-0.034) ng/mL Assessment and Plan Plan: Assessment and plan #1 non-ST elevation myocardial infarction status post stenting of the OM1 and diagonal #2 history of coronary artery disease with prior mid LAD stenting with resultant dissection. #3 ischemic cardiomyopathy with prior documented ejection fraction of 20-25% #4 hypertension #5 hyperlipidemia #6 chronic kidney disease #7 ischemic cardiomyopathy, echocardiogram with Doppler study revealed an ejection fraction of 25-30%, severe tricuspid regurg, moderate aortic stenosis and moderate pulmonary hypertension. Plan We will start the patient on Lasix 10 mg IV twice a day, discontinue the metoprolol and changed to Coreg 3.125 mg one half tablet twice a day. Patient h as also been advised by Dr. Jacquelin Carias to have a LifeVest placed for prevention of sudden cardiac . She will be transferred to the cardiac unit today. DNP note has been reviewed, I agree with a documented findings and plan of care. Patient was seen and examined.
--- NOTE | 2020-09-01 20:09 | P.PN ---
Progress Note - Text Progress Note Date: 09/01/20 Chief Complaint: Chest pain History of presenting complaint: This is a pleasant 85-year-old patient of Dr. Delaney. Chronic stable medical conditions include hypertension, osteoarthritis, chronic kidney disease. Patient around 10 PM last night started having her entire chest hurting. Lasting for quite some time. Patient started breaking out in a sweat and nausea. Pain radiating to the sides of the chest. Tired rundown. Presented to the ER. Troponins became positive. Ruled in for acute non-Q-wave NC. Taken to the cardiac catheterization lab. Had a stent to the OM place. In April of this year patient had a stent of the LAD. Patient's creatinine was 0.8 on May 04 and on June 03 it was 1.4. On April 30 patient had a stent to the LAD placed by Dr. KVNG Carias. 2-D echocardiogram at that time showed EF of 20-25%. Today-sitting up in a chair. Did walk a bit. No chest pain. No exertional breath. Eating okay. IV Lasix 10 mg twice a day started by bethany nichole. Metoprolol changed over to Coreg. Review of systems: Was done for constitutional, cardiovascular, GI, pulmonary. relevant finding as above Active Medications Al Hydroxide/Mg Hydroxide (Mag Hydrox/Al Hydrox/Simeth 30 Ml Cup) 30 ml PO Q4HR PRN PRN Reason: Heartburn Aspirin (Aspirin 81 Mg) 81 mg PO DAILY [facility] Last Admin: 09/01/20 09:26 Dose: 81 mg Documented by: Atorvastatin Calcium (Atorvastatin 40 Mg Tab) 40 mg PO DAILY [facility] Last Admin: 09/01/20 09:26 Dose: 40 mg Documented by: Atropine Sulfate (Atropine Sulfate 0.1 Mg/Ml 10ml Syringe) 0.5 mg IV ONCE PRN PRN Reason: Symptomatic Bradycardia Carvedilol (Carvedilol 1.563 Mg Tab) 1.563 mg PO BID-W/MEALS [facility] Last Admin: 09/01/20 16:52 Dose: 1.563 mg Documented by: Clopidogrel Bisulfate (Clopidogrel 75 Mg Tab) 75 mg PO DAILY [facility] Last Admin: 09/01/20 04:05 Dose: Not Given Documented by: Furosemide (Furosemide 10 Mg/Ml 2 Ml Vial) 10 mg IV Q12HR [facility] Last Admin: 09/01/20 09:25 Dose: 10 mg Documented by: Losartan Potassium (Losartan 25 Mg Tab) 12.5 mg PO DAILY [facility] Last Admin: 09/01/20 09:26 Dose: 12.5 mg Documented by: Miscellaneous Information (Rx Info: Iv Contrast Was Given 1 Each Misc) 1 each MISCELLANE DAILY PRN PRN Reason: Per Protocol Stop: 09/02/20 01:58 Nitroglycerin (Nitroglycerin Sl Tabs 0.4 Mg Tab) 0.4 mg SUBLINGUAL Q5M PRN PRN Reason: Chest Pain Zolpidem Tartrate (Zolpidem 5 Mg Tab) 5 mg PO HS PRN PRN Reason: Insomnia Physical examination: VITAL SIGNS: 98.1, 92, 12, 124/63, 96% room air GENERAL: Sitting up in a chair, comfortable EYES: Pupils equal. Conjunctiva normal. NECK: JVD not raised; masses not palpable. HEART: First and second heart sounds are normal; no edema. LUNGS: Respiratory rate normal; decreased breath sounds. ABDOMEN: Soft, nontender, liver spleen not palpable, no masses palpable. PSYCH: Alert and oriented x3; mood and affect normal. MUSCULAR skeletal: Evidence of OA INVESTIGATIONS, reviewed in the clinical context: White count 8.5 hemoglobin 11.4 Previous testing White count 10.6 hemoglobin 12.7 potassium 4.7 bun 31 and creatinine 1.44 Troponin I 0.092, 1.9, 2.2 EKG tracing personally reviewed by me-decrease ST segment and flipped T waves from lead V2 to V6 and one in aVL Chest x-ray film personally reviewed by me-possibly some chronic changes, elevated right diaphragm 2-D echocardiogram-EF 25-30%, moderate aortic stenosis, severe tricuspid regurgitation, moderate pulmonary hypertension Assessment: -Acute non-Q-wave myocardial infarction -Cardiac catheterization with a stent to the OM 1 -Coronary artery disease with prior stent to the LAD -Primary osteoarthritis -Essential hypertension -Chronic kidney disease stage III likely nephrosclerosis -Chronic congestive heart failure from systolic dysfunction EF 20-25% from carotid artery disease -Moderate aortic stenosis -Severe tricuspid regurgitation -Secondary moderate pulmonary hypertension Plan: -Continue aspirin, Lipitor, Plavix, Cozaar, Lopressor,. Has been given the option of for LifeVest. Did have a lengthy talk about the same. Advised for the same. Patient moved out of the ICU today. Repeat BMP in the morning.
[2020-09-01 21:14] VITALS: RESP 17
[2020-09-02 08:08] LABS: Calcium 9.1 mg/dL (8.4-10.2); Potassium 4.4 mmol/L (3.5-5.1)
[2020-09-02] MEDS: ASPIRIN 81 MG PO SCH (08:20)
[2020-09-02] MEDS: CLOPIDOGREL 75 MG TAB PO SCH (08:20)
[2020-09-02] MEDS: ATORVASTATIN 40 MG TAB PO SCH (08:21)
[2020-09-02] MEDS: LOSARTAN 25 MG TAB PO SCH (08:21)
[2020-09-02] MEDS: FUROSEMIDE 10 MG/ML 2 ML VIAL IV SCH (08:21)
[2020-09-02 09:55] VITALS: BP 107/65; PULSE 90; TEMP 98.1
--- NOTE | 2020-09-02 10:51 | P.PN ---
Subjective This is a pleasant 85-year-old female past medical history significant for hypertension, dyslipidemia, coronary artery disease with prior PCI to the LAD April 2020 and angioplasty and stenting of the OM and diagonal branch on this admission. She is seen and examined sitting up looking out the window in no acute distress. She is quite anxiously awaiting discharge today. She denies chest pain, dizziness, palpitations, nausea, vomiting or diaphoresis. Blood pressure 107/65 heart rate 90 afebrile maintaining oxygen saturation. Laboratory reviewed, sodium 132, potassium 4.4, creatinine 1.1 currently maintained on aspirin 81 mg daily, atorvastatin 40 mg daily, carvedilol 1.563 by mouth twice a day, Plavix 75 mg daily, Lasix 10 mg IV BID and losartan 12.5 mg daily. GENERAL: Well-appearing, well-nourished and in no acute distress. NECK: Supple without JVD or thyromegaly. LUNGS: Breath sounds clear to auscultation bilaterally. Respiration equal and unlabored. No wheezes, rales or rhonchi. HEART: Regular rate and rhythm without murmurs, rubs or gallops. S1 and S2 heard. EXTREMITIES: Normal range of motion, no edema. No clubbing or cyanosis. Peripheral pulses intact. ASSESSMENT Non-ST elevated myocardial infarction status post PCI to the OM and diagonal branch Prior history of coronary artery disease with stenting to the mid LAD Ischemic cardiomyopathy ejection fraction 20-25% Hypertension Dyslipidemia Chronic kidney disease PLAN Transition to oral diuretics. Currently awaiting LifeVest. Once this is an incomplete the patient can be discharged home on current medications. Nurse Practitioner note has been reviewed, I agree with a documented findings and plan of care. Patient was seen and examined. Objective - Vital Signs Vital signs: Vital Signs Temp 98.1 F 09/02/20 08:00 Pulse 90 09/02/20 08:00 Resp 17 09/02/20 08:00 BP 107/65 09/02/20 08:00 Pulse Ox 97 09/02/20 08:00 Intake & Output 09/01/20 09/02/20 09/02/20 18:59 06:59 18:59 Intake Total 180 Balance 180 Weight 64 kg Intake: Oral 180 Other: Voiding Method Toilet Toilet # Voids 4 500 0 # Bowel Movements 0 - Labs CBC & Chem 7: 09/01/20 05:36 09/02/20 07:07 Labs: Abnormal Lab Results - Last 24 Hours (Table) 09/02/20 Range/Units 07:07 Sodium 132 L (137-145) mmol/L Creatinine 1.10 H (0.52-1.04) mg/dL Glucose 108 H (74-99) mg/dL
[2020-09-02] MEDS ORDERED: FUROSEMIDE 20 MG TAB PO SCH (16:00)
--- NOTE | 2020-09-02 20:04 | P.DS ---
Providers Date of admission: 08/30/20 23:36 Expected date of discharge: 09/02/20 Attending physician: Jeremiah Honeycutt Consults: 08/30/20 23:36 Consult Physician Stat Consulting Provider: Mamadou Flores Consult Reason/Comments: STEMI ACTIVATION COMPLETE Do you want consulting provider notified?: Yes Consult Physician Stat Consulting Provider: Vishal Espino Consult Reason/Comments: ischemic changes on EKG Do you want consulting provider notified?: Already Contacted 08/31/20 01:58 Consult Physician Routine Consulting Provider: Mamadou Flores Consult Reason/Comments: Post Interventional patient Do you want consulting provider notified?: Already Contacted Primary care physician: [facility] Course: Chief Complaint: Chest pain History of presenting complaint: This is a pleasant 85-year-old patient of Dr. Delaney. Chronic stable medical conditions include hypertension, osteoarthritis, chronic kidney disease. Patient around 10 PM last night started having her entire chest hurting. Lasting for quite some time. Patient started breaking out in a sweat and nausea. Pain radiating to the sides of the chest. Tired rundown. Presented to the ER. Troponins became positive. Ruled in for acute non-Q-wave RI. Taken to the cardiac catheterization lab. Had a stent to the OM place. In April of this year patient had a stent of the LAD. Patient's creatinine was 0.8 on May 04 and on June 03 it was 1.4. On April 30 patient had a stent to the LAD placed by Dr. KVNG Carias. 2-D echocardiogram at that time showed EF of 20-25%. LifeVest was given. Today-stable. No chest pain. Breathing stable. Discussed with the patient. Consultation: Dr. KVNG Carias from cardiology Physical examination: VITAL SIGNS: 98.1, 90, 17, 107/65, 97% room air GENERAL: Sitting up , comfortable EYES: Pupils equal. Conjunctiva normal. NECK: JVD not raised; masses not palpable. HEART: First and second heart sounds are normal; no edema. LUNGS: Respiratory rate normal; decreased breath sounds. ABDOMEN: Soft, nontender, liver spleen not palpable, no masses palpable. PSYCH: Alert and oriented x3; mood and affect normal. MUSCULAR skeletal: Evidence of OA INVESTIGATIONS, reviewed in the clinical context: White count 8.5 hemoglobin 11.4 Previous testing White count 10.6 hemoglobin 12.7 potassium 4.4 creatinine 1.10 Troponin I 0.092, 1.9, 2.2 EKG tracing personally reviewed by me-decrease ST segment and flipped T waves from lead V2 to V6 and one in aVL Chest x-ray film personally reviewed by me-possibly some chronic changes, elevated right diaphragm 2-D echocardiogram-EF 25-30%, moderate aortic stenosis, severe tricuspid regurgitation, moderate pulmonary hypertension Assessment: -Acute non-Q-wave myocardial infarction -Cardiac catheterization with a stent to the OM 1 -Coronary artery disease with prior stent to the LAD -Primary osteoarthritis -Essential hypertension -Chronic kidney disease stage III likely nephrosclerosis -Chronic congestive heart failure from systolic dysfunction EF 20-25% from coronary artery disease -Moderate aortic stenosis -Severe tricuspid regurgitation -Secondary moderate pulmonary hypertension Disposition: Home Patient Condition at Discharge: Stable Plan - Discharge Summary Discharge Rx Participant: Yes New Discharge Prescriptions: New carvediloL [Coreg] 1.563 mg PO BID-W/MEALS #60 dose Losartan [Cozaar] 12.5 mg PO DAILY #30 tab Atorvastatin [Lipitor] 40 mg PO DAILY #30 tab Continue Nitroglycerin Sl Tabs [Nitrostat] 0.4 mg SUBLINGUAL Q5M PRN tab PRN Reason: Chest Pain Clopidogrel [Plavix] 75 mg PO DAILY #0 tab Aspirin EC [Ecotrin Low Dose] 81 mg PO DAILY Changed Furosemide [Lasix] 20 mg PO BID #60 tab Discontinued Fluticasone Nasal [place] [Flonase Nasal [place]] 2 spray EA NOSTRIL DAILY PRN PRN Reason: Vertigo Losartan Potassium [Cozaar] 100 mg PO DAILY Metoprolol Tartrate 50 mg PO DAILY Spironolactone [Aldactone] 25 mg PO DAILY Metoprolol Tartrate [Lopressor] 25 mg PO HS Atorvastatin [Lipitor] 40 mg PO [id number] Discharge Medication List Clopidogrel [Plavix] 75 mg PO DAILY #0 tab 05/04/20 [Rx] Nitroglycerin Sl Tabs [Nitrostat] 0.4 mg SUBLINGUAL Q5M PRN tab 05/04/20 [Rx] Aspirin EC [Ecotrin Low Dose] 81 mg PO DAILY 08/31/20 [History] Atorvastatin [Lipitor] 40 mg PO DAILY #30 tab 09/02/20 [Rx] Furosemide [Lasix] 20 mg PO BID #60 tab 09/02/20 [Rx] Losartan [Cozaar] 12.5 mg PO DAILY #30 tab 09/02/20 [Rx] carvediloL [Coreg] 1.563 mg PO BID-W/MEALS #60 dose 09/02/20 [Rx] Follow up Appointment(s)/Referral(s): Teto Carias MD [STAFF PHYSICIAN] - 09/09/20 2:45 pm (Monday) Michael Delaney DO [Primary Care Provider] - 09/09/20 11:00 am (Monday) Patient Instructions/Handouts: *Surgery [facility] - After Heart Catheterization - Accounting Systems Manager Instructions, Coronary Intravascular Stent Placement (DC), Wearable Cardioverter Defibrillator (DC) Activity/Diet/Wound Care/Special Instructions: life vest Discharge Disposition: HOME SELF-CARE
== END 2020-09-02 15:58 | disposition home or self-care (01) | DRG 247 ==
LOC: EC 22:49 → 3SCARD 23:36 → 2SICU 08-31 02:04 → 3SCARD 09-01 17:34
PROVIDERS: ADMIT Hospitalist; ATTEND Hospitalist
PROC: 027135Z Dilation of Coronary Artery, Two Arteries with Two Drug-eluting Intraluminal Devices, Percutaneous Approach (ICD-10-PCS; principal; 2020-08-31 00:12)
PROC: 4A023N7 Measurement of Cardiac Sampling and Pressure, Left Heart, Percutaneous Approach (ICD-10-PCS; principal; 2020-08-31 00:12)
PROC: B2111ZZ Fluoroscopy of Multiple Coronary Arteries using Low Osmolar Contrast (ICD-10-PCS; principal; 2020-08-31 00:12)
DX: I21.4 Non-ST elevation (NSTEMI) myocardial infarction (principal); I13.0 Hypertensive heart and chronic kidney disease with heart failure and stage 1 through stage 4 chronic kidney disease, or unspecified chronic kidney disease; I50.22 Chronic systolic (congestive) heart failure; J98.11 Atelectasis; T82.855A Stenosis of coronary artery stent, initial encounter; I25.10 Atherosclerotic heart disease of native coronary artery without angina pectoris; E78.5 Hyperlipidemia, unspecified; I08.3 Combined rheumatic disorders of mitral, aortic and tricuspid valves; I25.5 Ischemic cardiomyopathy; I27.20 Pulmonary hypertension, unspecified; M19.91 Primary osteoarthritis, unspecified site; N18.30 Chronic kidney disease, stage 3 unspecified; Z79.02 Long term (current) use of antithrombotics/antiplatelets; Z79.82 Long term (current) use of aspirin; Z79.899 Other long term (current) drug therapy; Z82.0 Family history of epilepsy and other diseases of the nervous system; Z82.49 Family history of ischemic heart disease and other diseases of the circulatory system; Z82.61 Family history of arthritis; Z90.710 Acquired absence of both cervix and uterus; Z95.5 Presence of coronary angioplasty implant and graft; Z96.642 Presence of left artificial hip joint
CPT/HCPCS: 36415; 71046; 80048; 80053; 82565; 83690; 83735; 83880; 84484; 85025; 85610; 85730; 93005; 93306; 93454; 96374; 99285

== ENCOUNTER 2020-09-07 13:29 | Observation (INO) | payer MEDICARE ==
[2020-09-07] MEDS ORDERED: ONDANSETRON 4 MG/2 ML VIAL IVP STA (13:36)
[2020-09-07] MEDS ORDERED: PANTOPRAZOLE 40 MG/10 ML VIAL IVP STA (13:36)
[2020-09-07] MEDS ORDERED: SODIUM CHLORIDE 0.9% 1,000 ML IV STA (13:36)
--- NOTE | 2020-09-07 13:38 | ED ---
GI Bleed HPI - General Chief complaint: GI Bleed Stated complaint: GI Bleed Time Seen by Provider: 09/07/20 13:31 Source: patient, RN notes reviewed, old records reviewed Mode of arrival: EMS Limitations: no limitations - History of Present Illness Initial comments: This is an 85-year-old female DF for evaluation patient be she has both upper and lower combination of GI bleed. Recent stent placement. She is on Plavix. No current pain. No recent fevers. No other MD complaint: coffee ground emesis, melena -: days(s) Radiation: none Severity scale (1-10): 3 Quality: painless Consistency: constant Improves with: none Worsens with: none Context: history of GI bleed Associated Symptoms: abdominal pain, weakness - Related Data Home Medications Medication Instructions Recorded Confirmed Aspirin EC [Ecotrin Low Dose] 81 mg PO DAILY 08/31/20 09/07/20 carvediloL [Coreg] 1.563 mg PO BID-W/MEALS 09/07/20 09/07/20 Previous Rx's Medication Instructions Recorded Clopidogrel [Plavix] 75 mg PO DAILY #0 tab 05/04/20 Nitroglycerin Sl Tabs [Nitrostat] 0.4 mg SUBLINGUAL Q5M PRN tab 05/04/20 Atorvastatin [Lipitor] 40 mg PO DAILY #30 tab 09/02/20 Furosemide [Lasix] 20 mg PO BID #60 tab 09/02/20 Losartan [Cozaar] 12.5 mg PO DAILY #30 tab 09/02/20 Allergies Allergy/AdvReac Type Severity Reaction Status Date / Time Rqxlics-Rlq-Jen Reductase Allergy Rash/Hives, Verified 09/07/20 14:22 Inhibitor PAIN Review of Systems ROS Statement: Those systems with pertinent positive or pertinent negative responses have been documented in the HPI. ROS Other: All systems not noted in ROS Statement are negative. Past Medical History Past Medical History: Hypertension, Osteoarthritis (OA) Additional Past Medical History / Comment(s): currently having SOB and fatigue,Hx Ball's Palsy, heart stent LAD x1 04/30/20 Last Myocardial Infarction Date:: 08/30/2020 History of Any Multi-Drug Resistant Organisms: None Reported Past Surgical History: Breast Surgery, Hysterectomy, Joint Replacement, Orthopedic Surgery Additional Past Surgical History / Comment(s): 03/31/15 Total L hip Arthroplasty. R breast biopsy-benign. Arthroscopy Left knee.ANT. TRH 09/11 Past Anesthesia/Blood Transfusion Reactions: No Reported Reaction Additional Past Anesthesia/Blood Transfusion Reaction / Comment(s): takes awhile to wake up,no hx blood transfusion Past Psychological History: No Psychological Hx Reported Smoking Status: Never smoker Past Alcohol Use History: None Reported Past Drug Use History: None Reported - Past Family History Mother Family Medical History: Musculoskeletal Disorder Additional Family Medical History / Comment(s): Mother had severe arthiritis and of parkinsons disease. Father Family Medical History: Myocardial Infarction (ID) Additional Family Medical History / Comment(s): Father at age 53yrs of ID General Exam Limitations: no limitations General appearance: alert, in no apparent distress Head exam: Present: atraumatic, normocephalic, normal inspection Eye exam: Present: normal appearance, PERRL, EOMI. Absent: scleral icterus, conjunctival injection, periorbital swelling ENT exam: Present: normal exam, mucous membranes moist Neck exam: Present: normal inspection. Absent: tenderness, meningismus, lymphadenopathy Respiratory exam: Present: normal lung sounds bilaterally. Absent: respiratory distress, wheezes, rales, rhonchi, stridor Cardiovascular Exam: Present: regular rate, normal rhythm, normal heart sounds. Absent: systolic murmur, diastolic murmur, rubs, gallop, clicks GI/Abdominal exam: Present: soft, normal bowel sounds. Absent: distended, tenderness, guarding, rebound, rigid Extremities exam: Present: normal inspection, full ROM, normal capillary refill. Absent: tenderness, pedal edema, joint swelling, calf tenderness Back exam: Present: normal inspection Neurological exam: Present: alert, oriented X3, CN II-XII intact Psychiatric exam: Present: normal affect, normal mood Skin exam: Present: warm, dry, intact, normal color. Absent: rash Course Vital Signs 09/07/20 09/07/20 09/07/20 13:31 14:32 15:23 Temperature 98.4 F Pulse Rate 99 96 89 Respiratory 17 17 18 Rate Blood Pressure 121/58 106/58 114/80 O2 Sat by Pulse 98 99 97 Oximetry - Reevaluation(s) Reevaluation #1: 09/07/20 13:38 Medical record is reviewed Medical Decision Making - Medical Decision Making 85 female DF for evaluation of weakness GI bleed recent stent placement, patient has mildly elevated troponin could be from prior stents but also with GI bleed and low anemia blood count on 2 points [place] for observation - Lab Data Result diagrams: 09/07/20 13:46 09/07/20 13:46 Lab Results 09/07/20 09/07/20 09/07/20 Range/Units 13:46 13:46 13:46 WBC 10.1 (3.8-10.6) k/uL RBC 3.12 L (3.80-5.40) m/uL Hgb 9.2 L D (11.4-16.0) gm/dL Hct 28.0 L (34.0-46.0) % MCV 89.8 (80.0-100.0) fL MCH 29.5 (25.0-35.0) pg MCHC 32.9 (31.0-37.0) g/dL RDW 14.1 (11.5-15.5) % Plt Count 295 (150-450) k/uL Neutrophils % 73 % Lymphocytes % 20 % Monocytes % 3 % Eosinophils % 1 % Basophils % 1 % Neutrophils # 7.4 (1.3-7.7) k/uL Lymphocytes # 2.0 (1.0-4.8) k/uL Monocytes # 0.3 (0-1.0) k/uL Eosinophils # 0.1 (0-0.7) k/uL Basophils # 0.1 (0-0.2) k/uL APTT 20.7 L (22.0-30.0) sec Sodium 133 L (137-145) mmol/L Potassium 3.8 (3.5-5.1) mmol/L Chloride 104 (98-107) mmol/L Carbon Dioxide 22 (22-30) mmol/L Anion Gap 7 mmol/L BUN 48 H (7-17) mg/dL Creatinine 1.09 H (0.52-1.04) mg/dL Est GFR (CKD-EPI)AfAm 54 (>60 ml/min/1.73 sqM) Est GFR (CKD-EPI)NonAf 47 (>60 ml/min/1.73 sqM) Glucose 162 H (74-99) mg/dL Calcium 7.9 L (8.4-10.2) mg/dL Magnesium 1.6 (1.6-2.3) mg/dL Total Bilirubin 0.5 (0.2-1.3) mg/dL AST 20 (14-36) U/L ALT 13 (4-34) U/L Alkaline Phosphatase 51 (38-126) U/L Creatine Kinase 38 (30-135) U/L Troponin I (0.000-0.034) ng/mL Total Protein 5.5 L (6.3-8.2) g/dL Albumin 3.1 L (3.5-5.0) g/dL Blood Type Blood Type Recheck Bld Type Recheck Status Antibody Screen Spec Expiration Date 09/07/20 09/07/20 Range/Units 13:46 13:46 WBC (3.8-10.6) k/uL RBC (3.80-5.40) m/uL Hgb (11.4-16.0) gm/dL Hct (34.0-46.0) % MCV (80.0-100.0) fL MCH (25.0-35.0) pg MCHC (31.0-37.0) g/dL RDW (11.5-15.5) % Plt Count (150-450) k/uL Neutrophils % % Lymphocytes % % Monocytes % % Eosinophils % % Basophils % % Neutrophils # (1.3-7.7) k/uL Lymphocytes # (1.0-4.8) k/uL Monocytes # (0-1.0) k/uL Eosinophils # (0-0.7) k/uL Basophils # (0-0.2) k/uL APTT (22.0-30.0) sec Sodium (137-145) mmol/L Potassium (3.5-5.1) mmol/L Chloride (98-107) mmol/L Carbon Dioxide (22-30) mmol/L Anion Gap mmol/L BUN (7-17) mg/dL Creatinine (0.52-1.04) mg/dL Est GFR (CKD-EPI)AfAm (>60 ml/min/1.73 sqM) Est GFR (CKD-EPI)NonAf (>60 ml/min/1.73 sqM) Glucose (74-99) mg/dL Calcium (8.4-10.2) mg/dL Magnesium (1.6-2.3) mg/dL Total Bilirubin (0.2-1.3) mg/dL AST (14-36) U/L ALT (4-34) U/L Alkaline Phosphatase (38-126) U/L Creatine Kinase (30-135) U/L Troponin I 0.050 H* (0.000-0.034) ng/mL Total Protein (6.3-8.2) g/dL Albumin (3.5-5.0) g/dL Blood Type O Positive Blood Type Recheck O Pos Bld Type Recheck Status No Antibody Screen NEGATIVE Spec Expiration Date 09/10/2020 - 9986 - EKG Data -: EKG Interpreted by Me (EKG is sinus rhythm 98 TX 146 QRS 86 QTc 474) Critical Care Time Critical Care Time: Yes Total Critical Care Time: 31 Disposition Clinical Impression: Acute systolic CHF (congestive heart failure), Acute non-ST elevation myocardial infarction (NSTEMI), Chest pain, GIB (gastrointestinal bleeding), Anemia Disposition: ADMITTED IP TO THIS HOSP Condition: Fair Is patient prescribed a controlled substance at d/c from ED?: No Referrals: Michael Delaney DO [Primary Care Provider] - 1-2 days
[2020-09-07 14:13] LABS: Albumin 3.1 g/dL (3.5-5.0); Calcium 7.9 mg/dL (8.4-10.2); Magnesium 1.6 mg/dL (1.6-2.3); Potassium 3.8 mmol/L (3.5-5.1); Total Bilirubin 0.5 mg/dL (0.2-1.3); Total Protein 5.5 g/dL (6.3-8.2)
[2020-09-07 14:24] LABS: Basophils # (A) 0.1 k/uL (0-0.2); Basophils % (A) 1 %; Eosinophils # (A) 0.1 k/uL (0-0.7); Eosinophils % (A) 1 %; Lymphocytes % (A) 20 %; MCH 29.5 pg (25.0-35.0); MCHC 32.9 g/dL (31.0-37.0); MCV 89.8 fL (80.0-100.0); Mean Platelet Volume 8.2; Monocytes # (A) 0.3 k/uL (0-1.0); Monocytes % (A) 3 %; Neutrophils # (A) 7.4 k/uL (1.3-7.7); Neutrophils % (A) 73 %; Platelet Count 295 k/uL (150-450); RBC 3.12 m/uL (3.80-5.40); RDW 14.1 % (11.5-15.5); WBC 10.1 k/uL (3.8-10.6)
[2020-09-07 14:28] LABS: HGB 9.2 gm/dL (11.4-16.0)
[2020-09-07] MEDS ORDERED: NITROGLYCERIN SL TABS 0.4 MG TAB SUBLINGUAL PRN (17:56)
[2020-09-07] MEDS ORDERED: ONDANSETRON 4 MG/2 ML VIAL IVP PRN (18:30)
[2020-09-07] MEDS: DEXTROSE 5%-0.9% NACL 1,000 ML IV SCH (20:15)
[2020-09-07] MEDS: FUROSEMIDE 20 MG TAB PO SCH (20:15)
[2020-09-08] MEDS: DEXTROSE 5%-0.9% NACL 1,000 ML IV SCH ×2 (06:39→20:13)
[2020-09-08 08:02] LABS: Basophils % (A) 1 %; Eosinophils # (A) 0.2 k/uL (0-0.7); Eosinophils % (A) 2 %; HCT 24.2 % (34.0-46.0); Lymphocytes # (A) 2.5 k/uL (1.0-4.8); Lymphocytes % (A) 31 %; MCH 29.9 pg (25.0-35.0); MCV 90.7 fL (80.0-100.0); Mean Platelet Volume 7.9; Monocytes # (A) 0.4 k/uL (0-1.0); Monocytes % (A) 5 %; Neutrophils # (A) 4.9 k/uL (1.3-7.7); Neutrophils % (A) 59 %; Platelet Count 267 k/uL (150-450); RBC 2.66 m/uL (3.80-5.40); RDW 14.7 % (11.5-15.5); WBC 8.2 k/uL (3.8-10.6)
[2020-09-08] MEDS: LOSARTAN 25 MG TAB PO SCH (08:12)
[2020-09-08] MEDS: ATORVASTATIN 40 MG TAB PO SCH (08:12)
[2020-09-08] MEDS: FUROSEMIDE 20 MG TAB PO SCH ×2 (08:12→20:16)
[2020-09-08 08:15] LABS: Potassium 3.2 mmol/L (3.5-5.1)
[2020-09-08 08:16] LABS: Calcium 8.5 mg/dL (8.4-10.2)
[2020-09-08] MEDS ORDERED: PANTOPRAZOLE 40 MG/10 ML VIAL IVP SCH (09:00)
--- NOTE | 2020-09-08 09:28 | P.CRDCN ---
History of Present Illness Consult date: 09/08/20 Reason for Consult (text): CAD with recent PCI Chief complaint: Hematocrit emesis and dark stool History of present illness: This is a pleasant 85-year-old female with documented history of hypertension, hyperlipidemia, coronary artery disease with prior LAD stenting in April of this year with a subsequent distal dissection, most recently on the of this month patient underwent PCI of the OM 1 and diagonal branch. She follows with Dr. Jacquelin Carias in the office. Echocardiogram with Doppler study performed on the of this month showed an ejection fraction of 25-30%, severe TR, moderate pulmonary hypertension. Overall the patient states she's been doing fairly well, yesterday prior to coming to the hospital the patient states that in the morning she felt weak and sluggish, later on in the day she had a vomiting episode, states that there was blood noted which was dark, she also had a bowel movement which she states was dark in color. For this reason she came to the hospital for further evaluation. Her white blood cell count on admission was 10.1 with a hemoglobin of 9.2, platelet count 295. Patient's hemoglobin on the of this month was 11.4, and in April 13.7. Sodium on admission 133, potassium 3.8, chloride 104, CO2 22, BUN 48, creatinine 1.0, troponin 0.050. This morning's labs white blood cell count 8.2, hemoglobin 8.0, platelet count 267. Sodium 137, potassium 3.2, BUN 35, creatinine 1.0. Patient's home medications included Coreg 1.563 twice a day, losartan 12-1/2 daily, Lasix 20 twice a day, Plavix 75 mg daily, baby aspirin daily, Lipitor 40 mg daily. Her aspirin and Plavix have been placed on hold, on admission here. Patient denies having any chest discomfort, her breathing overall has been stable. Past Medical History Past Medical History: Hypertension, Osteoarthritis (OA) Additional Past Medical History / Comment(s): Hx Ball's Palsy, heart stent LAD x1 04/30/20 Last Myocardial Infarction Date:: 08/30/2020 History of Any Multi-Drug Resistant Organisms: None Reported Past Surgical History: Breast Surgery, Heart Catheterization With Stent, Hysterectomy, Joint Replacement, Orthopedic Surgery Additional Past Surgical History / Comment(s): 5/19/15 Total L hip Arthroplasty. R breast biopsy-benign. Arthroscopy Left knee, right hip replacement Past Anesthesia/Blood Transfusion Reactions: No Reported Reaction Additional Past Anesthesia/Blood Transfusion Reaction / Comment(s): takes awhile to wake up,no hx blood transfusion Date of Last Stent Placement:: 08/31/20 Past Psychological History: No Psychological Hx Reported Additional Psychological History / Comment(s): Pt lives alone. She is normally independent. Smoking Status: Never smoker Past Alcohol Use History: None Reported Past Drug Use History: None Reported - Past Family History Mother Family Medical History: Musculoskeletal Disorder Additional Family Medical History / Comment(s): Mother had severe arthiritis and of parkinsons disease. Father Family Medical History: Myocardial Infarction ([place]) Additional Family Medical History / Comment(s): Father at age 53yrs of [place] Medications and Allergies Home Medications Medication Instructions Recorded Confirmed Type Clopidogrel [Plavix] 75 mg PO DAILY #0 tab 05/04/20 09/07/20 Rx Nitroglycerin Sl Tabs [Nitrostat] 0.4 mg SUBLINGUAL Q5M PRN tab 05/04/20 09/07/20 Rx Aspirin EC [Ecotrin Low Dose] 81 mg PO DAILY 08/31/20 09/07/20 History Atorvastatin [Lipitor] 40 mg PO DAILY #30 tab 09/02/20 09/07/20 Rx Furosemide [Lasix] 20 mg PO BID #60 tab 09/02/20 09/07/20 Rx Losartan [Cozaar] 12.5 mg PO DAILY #30 tab 09/02/20 09/07/20 Rx carvediloL [Coreg] 1.563 mg PO BID-W/MEALS 09/07/20 09/07/20 History Allergies Allergy/AdvReac Type Severity Reaction Status Date / Time Dwomind-Nlq-Hhl Reductase Allergy Rash/Hives, Verified 09/07/20 14:22 Inhibitor PAIN Physical Exam Vitals: Vital Signs Temp Pulse Pulse Resp BP BP Pulse Ox 09/08/20 08:15 98 F 80 16 123/59 100 09/08/20 04:00 72 18 91/46 96 09/08/20 00:00 97.7 F 101 H 16 110/56 97 09/07/20 20:00 98.6 F 86 18 110/55 96 09/07/20 16:51 98.7 F 90 16 135/61 97 09/07/20 15:23 89 18 114/80 97 09/07/20 14:32 96 17 106/58 99 09/07/20 13:31 98.4 F 99 17 121/58 98 Intake and Output 09/07/20 09/08/20 09/08/20 22:59 06:59 14:59 Intake Total 0 Balance 0 Intake: Oral 0 Other: Voiding Method Toilet Toilet # Voids 1 0 Weight 61.235 kg 63.9 kg PHYSICAL EXAMINATION: GENERAL: 85-year-old female in no acute distress at the time of my examination HEENT: Head is atraumatic, normocephalic. Pupils equal, round. Sclera anicteric. Conjunctiva are clear. Mucous membranes of the mouth are moist. Neck is supple. There is no elevated jugular venous pressure. No carotid bruit is heard. HEART EXAMINATION: Heart S1, S2 normal. No murmur or gallop heard. CHEST EXAMINATION: Lungs are clear with fine rales to the bases. No chest wall tenderness is noted on palpation or with deep breathing. ABDOMEN: Soft, nontender. Bowel sounds are heard. No organomegaly noted. EXTREMITIES: 2+ peripheral pulses with no evidence of peripheral edema and no calf tenderness noted. Right radial site clean and dry, good distal pulse NEUROLOGIC patient is awake, alert and oriented 3 . . Results 09/08/20 07:16 09/08/20 07:16 Cardiac Enzymes 09/07/20 09/07/20 Range/Units 13:46 13:46 AST 20 (14-36) U/L Troponin I 0.050 H* (0.000-0.034) ng/mL Coagulation 09/07/20 Range/Units 13:46 APTT 20.7 L (22.0-30.0) sec CBC 09/07/20 09/08/20 Range/Units 13:46 07:16 WBC 10.1 8.2 (3.8-10.6) k/uL RBC 3.12 L 2.66 L (3.80-5.40) m/uL Hgb 9.2 L D 8.0 L (11.4-16.0) gm/dL Hct 28.0 L 24.2 L (34.0-46.0) % Plt Count 295 267 (150-450) k/uL Comprehensive Metabolic Panel 09/07/20 09/08/20 Range/Units 13:46 07:16 Sodium 133 L 137 (137-145) mmol/L Potassium 3.8 3.2 L (3.5-5.1) mmol/L Chloride 104 107 (98-107) mmol/L Carbon Dioxide 22 25 (22-30) mmol/L BUN 48 H 35 H (7-17) mg/dL Creatinine 1.09 H 1.09 H (0.52-1.04) mg/dL Glucose 162 H 125 H (74-99) mg/dL Calcium 7.9 L 8.5 (8.4-10.2) mg/dL AST 20 (14-36) U/L ALT 13 (4-34) U/L Alkaline Phosphatase 51 (38-126) U/L Total Protein 5.5 L (6.3-8.2) g/dL Albumin 3.1 L (3.5-5.0) g/dL Current Medications Generic Name Dose Route Start Last Admin Trade Name Freq PRN Reason Stop Dose Admin Atorvastatin Calcium 40 mg 09/08/20 09:00 09/08/20 08:12 Atorvastatin 40 Mg Tab PO 40 mg DAILY PASQUALE Administration Carvedilol 1.563 mg 09/08/20 07:30 09/08/20 06:38 Carvedilol 1.563 Mg Tab PO 1.563 mg BID-W/MEALS PASQUALE Administration Furosemide 20 mg 09/07/20 21:00 09/08/20 08:12 Furosemide 20 Mg Tab PO 20 mg BID PASQUALE Administration Dextrose/Sodium Chloride 1,000 mls @ 75 mls/hr 09/07/20 18:00 09/08/20 06:39 Dextrose 5%-Ns Iv Soln IV 75 mls/hr .[id number] PASQUALE Administration Losartan Potassium 12.5 mg 09/08/20 09:00 09/08/20 08:12 Losartan 25 Mg Tab PO 12.5 mg DAILY PASQUALE Administration Nitroglycerin 0.4 mg 09/07/20 17:56 Nitroglycerin Sl Tabs 0.4 Mg Tab SUBLINGUAL Q5M PRN Chest Pain Ondansetron HCl 4 mg 09/07/20 18:30 Ondansetron 4 Mg/2 Ml Vial IVP Q6HR PRN Nausea And Vomiting Pantoprazole Sodium 40 mg 09/08/20 09:00 09/08/20 08:12 Pantoprazole 40 Mg/10 Ml Vial IVP 40 mg DAILY PASQUALE Administration Intake and Output 09/07/20 09/08/20 09/08/20 22:59 06:59 14:59 Intake Total 0 Balance 0 Intake: Oral 0 Other: Voiding Method Toilet Toilet # Voids 1 0 Weight 61.235 kg 63.9 kg 09/08/20 07:16 09/08/20 07:16 EKG Interpretations (text) EKG on presentation here showed a normal sinus rhythm with T wave inversion noted in the lateral leads. Assessment and Plan Plan: Assessment and plan #1 hemataemesis, and dark stools, acute blood loss anemia, hemoglobin 8.0 #2 hypertension #3 hyperlipidemia #4 coronary artery disease with prior LAD stenting in April of this year with subsequent dissection, stenting of the OM and diagonal on the of this month #5 ischemic cardiomyopathy with documented ejection fraction of 25-30% on the of this month, severe TR and moderate pulmonary hypertension Plan Consultation has been requested with GI service. As of the patient's recent stenting earlier this month, we will resume her Plavix, hold the aspirin at this time, until further evaluation by GI. We will continue to follow. DNP note has been reviewed, I agree with a documented findings and plan of care. Patient was seen and examined.
--- NOTE | 2020-09-08 10:09 | P.HPIM ---
History of Present Illness patient is pleasant 85-year-old female came in with complaints of hematemesis and one episode of dark stool. Patient and aspirin and Plavix because of her recent the cardiac catheterization and stent .patient had a year for for on the 25-30%. Patient denied any fever chills , dysuria. Patient is euvolemic at this time. Patient was bit hypotensive yesterday better today. Patient is on IV fluids which is discontinued. Patient will undergo upper GI endoscopy Review of Systems REVIEW OF SYSTEMS: CONSTITUTIONAL: No fever, no malaise, no fatigue. HEENT: No recent visual problems or hearing problems. Denied any sore throat. CARDIOVASCULAR: No chest pain, orthopnea, PND, no palpitations, no syncope. PULMONARY: No shortness of breath, no cough, no hemoptysis. GASTROINTESTINAL: No diarrhea, no abdominal pain. NEUROLOGICAL: No headaches, no weakness, no numbness. HEMATOLOGICAL: Denies any bleeding or petechiae. GENITOURINARY: Denies any burning micturition, frequency, or urgency. MUSCULOSKELETAL/RHEUMATOLOGICAL: Denies any joint pain, swelling, or any muscle pain. ENDOCRINE: Denies any polyuria or polydipsia. The rest of the 14-point review of systems is negative. Past Medical History Past Medical History: Hypertension, Osteoarthritis (OA) Additional Past Medical History / Comment(s): Hx Ball's Palsy, heart stent LAD x1 04/30/20 Last Myocardial Infarction Date:: 08/30/2020 History of Any Multi-Drug Resistant Organisms: None Reported Past Surgical History: Breast Surgery, Heart Catheterization With Stent, Hysterectomy, Joint Replacement, Orthopedic Surgery Additional Past Surgical History / Comment(s): 03/31/15 Total L hip Arthroplasty. R breast biopsy-benign. Arthroscopy Left knee, right hip replacement Past Anesthesia/Blood Transfusion Reactions: No Reported Reaction Additional Past Anesthesia/Blood Transfusion Reaction / Comment(s): takes awhile to wake up,no hx blood transfusion Date of Last Stent Placement:: 08/31/20 Past Psychological History: No Psychological Hx Reported Additional Psychological History / Comment(s): Pt lives alone. She is normally independent. Smoking Status: Never smoker Past Alcohol Use History: None Reported Past Drug Use History: None Reported - Past Family History Mother Family Medical History: Musculoskeletal Disorder Additional Family Medical History / Comment(s): Mother had severe arthiritis and of parkinsons disease. Father Family Medical History: Myocardial Infarction ([place]) Additional Family Medical History / Comment(s): Father at age 53yrs of [place] Medications and Allergies Home Medications Medication Instructions Recorded Confirmed Type Clopidogrel [Plavix] 75 mg PO DAILY #0 tab 05/04/20 09/07/20 Rx Nitroglycerin Sl Tabs [Nitrostat] 0.4 mg SUBLINGUAL Q5M PRN tab 05/04/20 09/07/20 Rx Aspirin EC [Ecotrin Low Dose] 81 mg PO DAILY 08/31/20 09/07/20 History Atorvastatin [Lipitor] 40 mg PO DAILY #30 tab 09/02/20 09/07/20 Rx Furosemide [Lasix] 20 mg PO BID #60 tab 09/02/20 09/07/20 Rx Losartan [Cozaar] 12.5 mg PO DAILY #30 tab 09/02/20 09/07/20 Rx carvediloL [Coreg] 1.563 mg PO BID-W/MEALS 09/07/20 09/07/20 History Allergies Allergy/AdvReac Type Severity Reaction Status Date / Time Pmehubo-Ivx-Cms Reductase Allergy Rash/Hives, Verified 09/07/20 14:22 Inhibitor PAIN Physical Exam Vitals: Vital Signs Temp Pulse Pulse Resp BP BP Pulse Ox 09/08/20 08:15 98 F 80 16 123/59 100 09/08/20 04:00 72 18 91/46 96 09/08/20 00:00 97.7 F 101 H 16 110/56 97 09/07/20 20:00 98.6 F 86 18 110/55 96 09/07/20 16:51 98.7 F 90 16 135/61 97 09/07/20 15:23 89 18 114/80 97 09/07/20 14:32 96 17 106/58 99 09/07/20 13:31 98.4 F 99 17 121/58 98 Intake and Output 09/07/20 09/08/20 09/08/20 22:59 06:59 14:59 Intake Total 0 Balance 0 Intake: Oral 0 Other: Voiding Method Toilet Toilet # Voids 1 0 Weight 61.235 kg 63.9 kg PHYSICAL EXAMINATION: GENERAL: The patient is alert and oriented x3, not in any acute distress. Well developed, well nourished. HEENT: Pupils are round and equally reacting to light. EOMI. No scleral icterus. No conjunctival pallor. Normocephalic, atraumatic. No pharyngeal erythema. No thyromegaly. CARDIOVASCULAR: S1 and S2 present. No murmurs, rubs, or gallops. PULMONARY: Chest is clear to auscultation, no wheezing or crackles. ABDOMEN: Soft, nontender, nondistended, normoactive bowel sounds. No palpable organomegaly. MUSCULOSKELETAL: No joint swelling or deformity. EXTREMITIES: No cyanosis, clubbing, or pedal edema. NEUROLOGICAL: Gross neurological examination did not reveal any focal deficits. SKIN: No rashes. Results CBC & Chem 7: 09/08/20 07:16 09/08/20 07:16 Labs: Abnormal Lab Results - Last 24 Hours (Table) 09/07/20 09/07/20 09/07/20 Range/Units 13:46 13:46 13:46 RBC 3.12 L (3.80-5.40) m/uL Hgb 9.2 L D (11.4-16.0) gm/dL Hct 28.0 L (34.0-46.0) % APTT 20.7 L (22.0-30.0) sec Sodium 133 L (137-145) mmol/L Potassium (3.5-5.1) mmol/L BUN 48 H (7-17) mg/dL Creatinine 1.09 H (0.52-1.04) mg/dL Glucose 162 H (74-99) mg/dL Calcium 7.9 L (8.4-10.2) mg/dL Troponin I (0.000-0.034) ng/mL Total Protein 5.5 L (6.3-8.2) g/dL Albumin 3.1 L (3.5-5.0) g/dL 09/07/20 09/08/20 09/08/20 Range/Units 13:46 07:16 07:16 RBC 2.66 L (3.80-5.40) m/uL Hgb 8.0 L (11.4-16.0) gm/dL Hct 24.2 L (34.0-46.0) % APTT (22.0-30.0) sec Sodium (137-145) mmol/L Potassium 3.2 L (3.5-5.1) mmol/L BUN 35 H (7-17) mg/dL Creatinine 1.09 H (0.52-1.04) mg/dL Glucose 125 H (74-99) mg/dL Calcium (8.4-10.2) mg/dL Troponin I 0.050 H* (0.000-0.034) ng/mL Total Protein (6.3-8.2) g/dL Albumin (3.5-5.0) g/dL Thrombosis Risk Factor Assmnt - Choose All That Apply Each Risk Factor Represents 3 Points: Age 75 years or older Thrombosis Risk Factor Assessment Total Risk Factor Score: 3 Thrombosis Risk Factor Assessment Level: Moderate Risk Assessment and Plan Plan: -acute upper GI bleed probably peptic ulcer disease patient is on dual antiplatelet therapy. Plavix was started by cardiology gastric body evaluate the patient patient is presently on Protonix patient will undergo upper GI endoscopy -Coronary artery disease with recent stent -Ischemic cardiomyopathy with the chronic systolic dysfunction with EF of around 25-30% patient is not in heart failure exacerbation at this time. Patient is presently resumed on the FER inhibitor as well as diuretics. IV fluids were discontinued. -Moderate pulmonary hypertension with severe TR -Hypertension -Hyperlipidemia
[2020-09-08] MEDS ORDERED: Potassium Replacement Protocol 1 EACH MISC MISCELLANE PRN ×2 (10:10→12:01)
--- NOTE | 2020-09-08 10:10 | XR ---
EXAMINATION TYPE: XR chest 1V DATE OF EXAM: 09/08/2020 COMPARISON: Prior chest x-ray 08/30/2020 HISTORY: Congestive heart failure TECHNIQUE: Single frontal view of the chest is obtained. FINDINGS: Multiple metallic devices are present over the chest. Some patchy basilar density present at the costophrenic angles as on prior may represent scarring. Aorta is dense. Heart size is within n ormal limits. There is no evident pneumothorax or pleural effusion. IMPRESSION: No acute process. Probable basilar scarring or atelectasis. Underlying detail obscured b y overlying artifacts
[2020-09-08] MEDS ORDERED: Magnesium Replacement Protocol 1 EACH MISC MISCELLANE PRN ×2 (10:13→22:25)
[2020-09-08] MEDS: CLOPIDOGREL 75 MG TAB PO SCH (10:19)
[2020-09-08] MEDS: POTASSIUM CHLORIDE ER 20 MEQ TAB.ER PO SCH ×3 (12:42→23:23)
[2020-09-08 13:12] LABS: Basophils # (A) 0.1 k/uL (0-0.2); Basophils % (A) 1 %; Eosinophils # (A) 0.2 k/uL (0-0.7); Eosinophils % (A) 2 %; HCT 25.5 % (34.0-46.0); HGB 8.3 gm/dL (11.4-16.0); Hypochromasia Slight; Lymphocytes # (A) 2.2 k/uL (1.0-4.8); Lymphocytes % (A) 26 %; MCH 30.5 pg (25.0-35.0); MCHC 32.4 g/dL (31.0-37.0); MCV 94.1 fL (80.0-100.0); Mean Platelet Volume 7.9; Monocytes # (A) 0.3 k/uL (0-1.0); Monocytes % (A) 4 %; Neutrophils # (A) 5.6 k/uL (1.3-7.7); Neutrophils % (A) 65 %; Platelet Count 277 k/uL (150-450); RBC 2.71 m/uL (3.80-5.40); RDW 14.6 % (11.5-15.5); WBC 8.5 k/uL (3.8-10.6)
--- NOTE | 2020-09-08 16:56 | CONS ---
CONSULTATION DATE OF SERVICE: 09/08/2020 REQUESTING PHYSICIAN: Dr. Michael Delaney. REASON FOR CONSULTATION: Acute upper gastrointestinal bleed. HISTORY OF PRESENT ILLNESS: The patient is an 85-year-old pleasant white female with history of coronary artery disease presently on aspirin and Plavix, who recently underwent cardiac catheterization with stent placement a few months ago. She was admitted to the hospital after having one episode of coffee-ground emesis and subsequently had one episode of dark colored stools. She denies any abdominal pain. No prior history of peptic ulcer disease. She never had these symptoms in the past. Following admission in the hospital she had labs done that showed a CBC of 9.2 and subsequently dropped to 8.3 g/dL. She denies any NSAID use. No prior history of peptic ulcer disease. Never had EGD or colonoscopy in the past. PAST MEDICAL HISTORY: Significant for hypertension, coronary artery disease, degenerative joint disease. PAST SURGICAL HISTORY: Breast biopsy, hysterectomy, tubal ligation, total left hip arthroplasty and left knee arthroscopy. MEDICATIONS: At home include Ecotrin, Coreg, Plavix, Lipitor, Lasix, Nitrostat. ALLERGIES: STATINS. SOCIAL HISTORY: No smoking, no alcohol use. FAMILY HISTORY: Mother had musculoskeletal disorder. Father had coronary artery disease. REVIEW OF SYSTEMS: CARDIOPULMONARY: No chest pain, no shortness of breath. GENITOURINARY: No dysuria or hematuria. MUSCULOSKELETAL: Unremarkable, other than mild ascites. NEUROLOGY: Unremarkable. PSYCHIATRIC: Unremarkable. ENT/VISION: Unremarkable. CONSTITUTIONAL: No recent weight loss. No fever, chills, night sweats. ENDOCRINE: Unremarkable. HEMATOLOGY: Anemia. Her baseline hemoglobin was 11 g/dL last year. PHYSICAL EXAMINATION: She appears comfortable, in no apparent distress. Vital signs are stable. Blood pressure is 94/59, pulse 84, temperature 97.7. HEENT: Examination unremarkable, conjunctivae are pink, sclerae nonicteric, oral cavity no lesions. NECK: No JVD or lymph node enlargement. CHEST: Clear to auscultation. HEART: Regular rate and rhythm. ABDOMEN: Soft, bowel sounds are positive. It was nontender, nondistended. EXTREMITIES: No pedal edema. SKIN: No rashes. NEUROLOGIC: Alert and oriented x3. No focal deficits. LABS: WBC 10.1, hemoglobin 9.2, platelets normal. Basic metabolic panel showed a BUN of 48, creatinine 1.09. Today, hemoglobin is 8.3 g/dL. PTT is within normal limits. Troponin 0.050. Albumin 3.1. ALT, AST, T-bilirubin and alkaline phosphatase are normal. IMPRESSION: 1. Acute upper gastrointestinal bleed, the patient presented with one episode of coffee-ground emesis and dark-colored stools and that happened yesterday. Hemoglobin dropped from 9.2 to 8.3 g/dL. No prior history of peptic ulcer disease or recent NSAID use, possibly dealing with peptic ulcer disease or gastroesophageal reflux disease. Presently hemodynamically stable and no further bleeding since being in the hospital. 2. Coronary artery disease, status post cardiac cath with stent placement a month ago, presently on aspirin and Plavix, which is on hold. 3. History of hypertension. 4. History of hypercholesteremia. RECOMMENDATION: 1. Start on Protonix 40 mg twice daily. 2. Clear liquid diet. 3. Antiemetics as needed. 4. Hold off on aspirin and Plavix. 5. We will proceed with an upper endoscopy tomorrow. Discussed with the patient risks, benefits and complications of procedure and she is agreeable to it. Thank you for this consultation. MMODL / IJN: [id number] /
[2020-09-08] MEDS: PANTOPRAZOLE 40 MG/10 ML VIAL IVP SCH (20:16)
[2020-09-08] MEDS ORDERED: LACTATED RINGERS 1,000 ML IV SCH (20:30)
[2020-09-08 21:54] LABS: HGB 7.4 gm/dL (11.4-16.0); MCH 30.2 pg (25.0-35.0); MCHC 33.4 g/dL (31.0-37.0); MCV 90.6 fL (80.0-100.0); Mean Platelet Volume 7.7; Platelet Count 250 k/uL (150-450); RBC 2.43 m/uL (3.80-5.40); RDW 14.4 % (11.5-15.5); WBC 10.6 k/uL (3.8-10.6)
[2020-09-08 21:59] LABS: Calcium 8.2 mg/dL (8.4-10.2); Magnesium 1.7 mg/dL (1.6-2.3); Potassium 3.3 mmol/L (3.5-5.1)
[2020-09-08] MEDS ORDERED: NITROGLYCERIN OINT 1 INCH/GM PACKET TOPICAL STA (22:48)
[2020-09-08] MEDS: MAGNESIUM SULFATE-D5W PMX 1 GM in DEXTROSE/WATER 1 100ML.BAG IVPB SCH (23:24)
[2020-09-09] MEDS: MAGNESIUM SULFATE-D5W PMX 1 GM in DEXTROSE/WATER 1 100ML.BAG IVPB SCH (00:49)
[2020-09-09] MEDS: POTASSIUM CHLORIDE ER 20 MEQ TAB.ER PO SCH (00:49)
[2020-09-09 07:18] LABS: HCT 22.9 % (34.0-46.0); HGB 7.4 gm/dL (11.4-16.0); MCH 29.7 pg (25.0-35.0); MCHC 32.4 g/dL (31.0-37.0); MCV 91.6 fL (80.0-100.0); Mean Platelet Volume 7.8; Platelet Count 252 k/uL (150-450); RDW 14.9 % (11.5-15.5); WBC 7.4 k/uL (3.8-10.6)
[2020-09-09 07:33] LABS: Calcium 8.4 mg/dL (8.4-10.2); Magnesium 2.3 mg/dL (1.6-2.3); Potassium 4.1 mmol/L (3.5-5.1)
[2020-09-09] MEDS ORDERED: IV FLUID CONTINUATION 1,000 ML IV ONE ×2 (07:57)
[2020-09-09] MEDS ORDERED: PROPOFOL 10 MG/ML 20 ML VIAL IV ONE (07:59)
[2020-09-09] MEDS ORDERED: LIDOCAINE 1% INJ 10MG/ML (20 ML MDV) ONE (07:59)
--- NOTE | 2020-09-09 08:13 | P.PCN ---
Date of Procedure: 09/09/20 Procedure(s) Performed: BRIEF HISTORY: Patient is a 85-year-old, pleasant, female scheduled with acute upper GI bleed. She had 2 episodes of coffee-ground emesis and melena. She dropped the hemoglobin from 9-7.4 g/dL. He is on aspirin and Plavix the last 3 months for coronary artery disease and stent placement. No recent in 10 years. She is scheduled for an upper endoscopy to evaluate for upper GI source of bleeding PROCEDURE PERFORMED: Esophagogastroduodenoscopy with biopsy. PREOPERATIVE DIAGNOSIS: Acute upper GI bleed. IV sedation per anesthesia. PROCEDURE: After informed consent was obtained, the patient was brought into the endoscopy unit. IV sedation was administered by Anesthesia under continuous monitoring. Initially the Olympus GIF-140 video endoscope was inserted into the mouth. Esophagus intubated without any difficulty. It was gradually advanced into the stomach and duodenum and carefully examined. The bulb and the second part of the duodenum appeared normal. The scope at this time was withdrawn to the stomach, adequately insufflated with air, and upon careful examination, there was a 1 cm clean-based pyloric channel ulcer with no active bleeding. There are scattered erosions in the antrum and biopsies were done from this area. Rest of the mucosa of the antrum, body, cardia and the fundus appeared normal. The scope was then withdrawn into the esophagus. The GE junction was located at 39 cm from the incisors. The esophagus appeared normal. There were no erosions or ulcerations seen and the patient tolerated the procedure well. IMPRESSION: 1. 1 cm clean-based pyloric channel ulcer with no active bleeding. 2. Antral erosive gastritis. RECOMMENDATIONS: The findings of this examination were discussed with the patient . She will be continued on Protonix 40 mg twice daily, avoid NSAIDs. Diet will be advanced as tolerated. Since there was no evidence of active bleeding, aspirin and Plavix can be resumed today...
[2020-09-09] MEDS: LOSARTAN 25 MG TAB PO SCH (08:52)
[2020-09-09] MEDS: CLOPIDOGREL 75 MG TAB PO SCH (08:52)
[2020-09-09] MEDS: ATORVASTATIN 40 MG TAB PO SCH (08:52)
[2020-09-09] MEDS: FUROSEMIDE 20 MG TAB PO SCH ×2 (08:53→16:07)
[2020-09-09] MEDS ORDERED: ASPIRIN 81 MG PO SCH (09:00)
[2020-09-09] MEDS: PANTOPRAZOLE 40 MG/10 ML VIAL IVP SCH ×2 (09:02→16:07)
[2020-09-09] MEDS: DEXTROSE 5%-0.9% NACL 1,000 ML IV SCH ×2 (10:59→16:07)
[2020-09-09 11:26] VITALS: BP 99/51; PULSE 84; RESP 15; TEMP 97.5
--- NOTE | 2020-09-09 11:51 | P.PN ---
Subjective Progress Note Date: 09/09/20 This is a pleasant 85-year-old female with documented history of hypertension, hyperlipidemia, coronary artery disease with prior LAD stenting in April of this year with a subsequent distal dissection, most recently on the of this month patient underwent PCI of the OM 1 and diagonal branch. She follows with Dr. Jacquelin Carias in the office. Echocardiogram with Doppler study performed on the of this month showed an ejection fraction of 25-30%, severe TR, moderate pulmonary hypertension. Overall the patient states she's been doing fairly well, yesterday prior to coming to the hospital the patient states that in the morning she felt weak and sluggish, later on in the day she had a vomiting episode, states that there was blood noted which was dark, she also had a bowel movement which she states was dark in color. For this reason she came to the hospital for further evaluation. Her white blood cell count on admission was 10.1 with a hemoglobin of 9.2, platelet count 295. Patient's hemoglobin on the of this month was 11.4, and in April 13.7. Sodium on admission 133, potassium 3.8, chloride 104, CO2 22, BUN 48, creatinine 1.0, troponin 0.050. This morning's labs white blood cell count 8.2, hemoglobin 8.0, platelet count 267. Sodium 137, potassium 3.2, BUN 35, creatinine 1.0. Patient's home medications included Coreg 1.563 twice a day, losartan 12-1/2 daily, Lasix 20 twice a day, Plavix 75 mg daily, baby aspirin daily, Lipitor 40 mg daily. Her aspirin and Plavix have been placed on hold, on admission here. Patient denies having any chest discomfort, her breathing overall has been stable. 09/09/2020 Patient seen and examined this morning, feeling very tired today, otherwise and no complaints. Patient underwent an EGD yesterday which revealed a 1 cm pyloric channel ulcer with no active bleeding. Antral erosive gastritis. She was initiated on Protonix and told to avoid steroids. Patient was also cleared by GI service to be reinitiated on both her aspirin and her Plavix. Was seen and examined this morning, denied any chest discomfort and her breathing overall is stable. Blood pressure 100/50 with a heart rate in the 80s, 98% on 2 L of oxygen. Blood cell count 7.4, hemoglobin 7.4, platelet count 252. Sodium 137, potassium 4.1, BUN 18, creatinine 1.0. Magnesium 2.3. Objective - Vital Signs Vital signs: Vital Signs Temp 97.5 F L 09/09/20 11:21 Pulse 84 09/09/20 11:21 Resp 15 09/09/20 11:21 BP 99/51 09/09/20 11:21 Pulse Ox 98 09/09/20 11:21 Intake & Output 09/08/20 09/09/20 09/09/20 18:59 06:59 18:59 Intake Total 480 50 Output Total 300 Balance 180 50 Weight 64 kg Intake: IV 50 Oral 480 Output: Urine 300 Other: Voiding Method Toilet Toilet Toilet # Voids 1 1 # Bowel Movements 0 - Exam PHYSICAL EXAMINATION: GENERAL: 85-year-old female in no acute distress at the time of my examination HEENT: Head is atraumatic, normocephalic. Pupils equal, round. Sclera anicteric. Conjunctiva are clear. Mucous membranes of the mouth are moist. Neck is supple. There is no elevated jugular venous pressure. No carotid bruit is heard. HEART EXAMINATION: Heart S1, S2 normal. No murmur or gallop heard. CHEST EXAMINATION: Lungs are clear with fine rales to the bases. No chest wall tenderness is noted on palpation or with deep breathing. ABDOMEN: Soft, nontender. Bowel sounds are heard. No organomegaly noted. EXTREMITIES: 2+ peripheral pulses with no evidence of peripheral edema and no calf tenderness noted. Right radial site clean and dry, good distal pulse NEUROLOGIC patient is awake, alert and oriented 3 . - Labs CBC & Chem 7: 09/09/20 06:46 09/09/20 06:46 Labs: Abnormal Lab Results - Last 24 Hours (Table) 09/08/20 09/08/20 09/08/20 Range/Units 12:56 21:36 21:36 RBC 2.71 L 2.43 L (3.80-5.40) m/uL Hgb 8.3 L 7.4 L (11.4-16.0) gm/dL Hct 25.5 L 22.0 L (34.0-46.0) % Sodium 135 L (137-145) mmol/L Potassium 3.3 L (3.5-5.1) mmol/L BUN 24 H (7-17) mg/dL Creatinine (0.52-1.04) mg/dL Glucose 121 H (74-99) mg/dL Calcium 8.2 L (8.4-10.2) mg/dL 09/09/20 09/09/20 Range/Units 06:46 06:46 RBC 2.50 L (3.80-5.40) m/uL Hgb 7.4 L (11.4-16.0) gm/dL Hct 22.9 L (34.0-46.0) % Sodium (137-145) mmol/L Potassium (3.5-5.1) mmol/L BUN 18 H (7-17) mg/dL Creatinine 1.09 H (0.52-1.04) mg/dL Glucose 134 H (74-99) mg/dL Calcium (8.4-10.2) mg/dL Assessment and Plan Plan: Assessment and plan #1 hemataemesis, and dark stools, acute blood loss anemia, hemoglobin 7.4 #2 hypertension #3 hyperlipidemia #4 coronary artery disease with prior LAD stenting in April of this year with subsequent dissection, stenting of the OM and diagonal on the of this month #5 ischemic cardiomyopathy with documented ejection fraction of 25-30% on the of this month, severe TR and moderate pulmonary hypertension Plan Patient underwent an EGD yesterday which revealed pyloric channel ulcer with no active bleeding, antral erosive gastritis. We will resume her baby aspirin today, continue Plavix 75 mg daily. From our perspective she may be discharged once cleared by GI and primary service. We will make her a follow-up appointment in the office post discharge. DNP note has been reviewed, I agree with a documented findings and plan of care. Patient was seen and examined.
== END 2020-09-09 16:34 | disposition home or self-care (01) ==
LOC: EC 13:29 → 3SCARD 15:41
PROVIDERS: ADMIT Hospitalist; ATTEND Hospitalist
DX: K25.9 Gastric ulcer, unspecified as acute or chronic, without hemorrhage or perforation (principal); K29.00 Acute gastritis without bleeding; I21.4 Non-ST elevation (NSTEMI) myocardial infarction; I11.0 Hypertensive heart disease with heart failure; I50.21 Acute systolic (congestive) heart failure; K29.50 Unspecified chronic gastritis without bleeding; R77.8 Other specified abnormalities of plasma proteins; M19.90 Unspecified osteoarthritis, unspecified site; Z95.5 Presence of coronary angioplasty implant and graft; I25.2 Old myocardial infarction; Z90.710 Acquired absence of both cervix and uterus; Z96.642 Presence of left artificial hip joint; Z98.890 Other specified postprocedural states; Z86.69 Personal history of other diseases of the nervous system and sense organs; Z82.61 Family history of arthritis; Z82.0 Family history of epilepsy and other diseases of the nervous system; Z82.49 Family history of ischemic heart disease and other diseases of the circulatory system; Z79.02 Long term (current) use of antithrombotics/antiplatelets; Z79.82 Long term (current) use of aspirin; Z79.899 Other long term (current) drug therapy; Z88.8 Allergy status to other drugs, medicaments and biological substances; D62 Acute posthemorrhagic anemia; E78.00 Pure hypercholesterolemia, unspecified; E78.5 Hyperlipidemia, unspecified; I07.1 Rheumatic tricuspid insufficiency; I25.10 Atherosclerotic heart disease of native coronary artery without angina pectoris; I25.5 Ischemic cardiomyopathy; I27.20 Pulmonary hypertension, unspecified; Z87.11 Personal history of peptic ulcer disease
CPT/HCPCS: 96376; 96361 ×3; 96374; 96375; 99291; 36415; 93005; 86900; 86901; 88305; 80053; 80048 ×2; 82550; 83735 ×3; 84484; 85025 ×2; 85027 ×2; 85730; 86850; 71045; 43239; G0378 ×3; J2405 ×2; J2001; J3475 ×2; J2704; C9113 ×3

== ENCOUNTER 2020-12-03 08:29 | Day surgery (SDC) | payer MEDICARE ==
[2020-12-01 10:24] VITALS: BMI 26.4
[~2020-12-03 08:29] MED LIST changes: -ALPRAZolam 0.25 MG TAB PO PRN; -ALPRAZolam 0.5 MG TAB PO PRN; -ASPIRIN 325 MG TAB PO STA; +LACTATED RINGERS 1,000 ML IV SCH; -NITROGLYCERIN SL TABS 0.4 MG TAB SUBLINGUAL PRN; +SODIUM CHLORIDE 0.9% 1,000 ML IV SCH; -SODIUM CHLORIDE 0.9% 1,000 ML in EMPTY BAG 1 BAG IV ONE; +ceFAZolin 1 GM in SODIUM CHLORIDE 0.9% 250 ML IRRIGATION PRN
[2020-12-03 09:03] VITALS: RESP 16; TEMP 98.1
[2020-12-03] MEDS ORDERED: SODIUM CHLORIDE 0.9% 1,000 ML IV ONE (09:03)
[2020-12-03] MEDS ORDERED: HYDROmorphone (PF) 1 MG/ML ONE (10:28)
[2020-12-03] MEDS ORDERED: fentaNYL (PF) 50 MCG/ML 2 ML AMP ONE (10:28)
[2020-12-03] MEDS ORDERED: PROPOFOL 10 MG/ML 20 ML VIAL IV ONE (10:28)
[2020-12-03] MEDS ORDERED: MIDAZOLAM 2 MG/2 ML VIAL ONE (10:28)
[2020-12-03] MEDS ORDERED: LIDOCAINE 1% INJ 10MG/ML (20 ML MDV) ONE (10:56)
[2020-12-03] MEDS ORDERED: LIDOCAINE 1% INJ 10MG/ML (20 ML MDV) SQ ONE ×2 (11:09→11:27)
--- NOTE | 2020-12-03 12:25 | P.EPPROC ---
- EP Procedure Note Electrophysiology Procedure Note: Diagnosis Cardiomyopathy, chronic, ischemic cardio myopathy, CAD, status post PCI greater than 3 months back Left ventricular ejection fraction remains at 25% Congestive heart failure, systolic class II On guideline directed medical treatment guideline directed Procedure: Single ICD implantation for management of risk of sudden cardiac [employer] Sql Developer: Dr. Joiner Result: Single chamber ICD implantation, RV ICD lead: R waves greater than 12 mV, pacing impedance 730 ohms, pacing threshold 0.75 V at 0.5 ms High-voltage impedance 74 ohms [id number], [id number] Single-chamber ICD, [facility],, [place], [id number] Serial number [id number] Procedure details: Patient was brought to the EP lab in a fasting state. Written informed consent was obtained prior to the procedure. Options, pros and cons, benefits and risks and complications discussed with patient in detail prior to the procedure (shared decision making document, from [facility]). Importance of continuing medical treatment emphasized. Alternatives discussed. Patient would like to proceed with ICD implant. Left upper extremity venogram performed. 15 mL IV dye injected in the left arm. Patent axillary/subclavian vein The left pectoral area was prepped and draped as a protocol. IV antibiotics administered 1% lidocaine was used for local anesthesia. A 4 cm incision was made parallel to the deltopectoral groove, about 1.5 cm medial to it. The incision was carried down to the level of the pectoralis muscle and the subfascial pocket was made. Hemostasis was assured. The axillary vein access was obtained. Appropriately sized venous sheath was placed. ICD lead implanted in the right ventricle and screwed in. ICD lead tested for threshold, sensing, impedances and tested with high output pacing for diaphragmatic stimulation Lead secured to the underlying transverse muscle after removing sheaths . Pocket irrigated with antibiotic solution Leads connected to the biventricular ICD generator. Wound closed in 3 layers and dressed per protocol Biventricular ICD interrogated and programmed. Appropriate pacing parameters, antitachycardia therapies with antitachycardia pacing cardioversion defibrillations programmed. Patient tolerated the procedure well without any acute complications. See scanned device report in EMR for lead details Defibrillation testing At the C4 shock was used to induce ventricular fibrillation. This was adequately and appropriately detected at least sensitivity and successfully internally defibrillated with 10 J shock, shocking impedance 74 ohms charge time 1.8 seconds no post shock noise Device was then programmed according to the mediated RIT programming
[2020-12-03] MEDS ORDERED: ACETAMINOPHEN TAB 325 MG TAB PO PRN (12:26)
--- NOTE | 2020-12-03 12:26 | P.PN ---
Progress Note - Text Patient is a candidate for a primary prevention ICD for future risk of sudden cardiac . Coronary artery disease, old myocardial infarction, ischemic cardio myopathy Chronic systolic heart failure class II, reduced LV systolic function of 35% or less On guideline directed medical treatment for greater than 3 months No revascularization within the last 3 months No recent acute myocardial infarction within the last 40 days
[2020-12-03] MEDS ORDERED: ONDANSETRON 4 MG/2 ML VIAL ONE (13:43)
[2020-12-03] MEDS ORDERED: ACETAMINOPHEN IV (For NPO) 1,000 MG in EMPTY BAG 1 BAG IVPB ONE (14:00)
--- NOTE | 2020-12-03 14:47 | XR ---
EXAMINATION TYPE: XR chest 1V portable DATE OF EXAM: 12/03/2020 COMPARISON: 09/08/2020 HISTORY: Pacemaker placement check. TECHNIQUE: Single frontal view of the chest is obtained. FINDINGS: Hyperinflation. Cardiac device noted. There is bibasilar infiltrate and small right effusi on. No overt failure. No pneumothorax. Arthropathy of the shoulders. Atherosclerotic change aorta. IMPRESSION: 1. COPD with bibasilar infiltrate and small right effusion stable.
[2020-12-03 18:11] VITALS: BP 141/65; PULSE 67
== END 2020-12-03 17:47 | disposition home or self-care (01) ==
LOC: CATHEP 08:29
PROVIDERS: ATTEND Internal Medicine Clinical Cardiac Electrophysiology
DX: I25.5 Ischemic cardiomyopathy (principal); I25.10 Atherosclerotic heart disease of native coronary artery without angina pectoris; I50.22 Chronic systolic (congestive) heart failure; I11.0 Hypertensive heart disease with heart failure; I25.2 Old myocardial infarction; R09.89 Other specified symptoms and signs involving the circulatory and respiratory systems; I83.93 Asymptomatic varicose veins of bilateral lower extremities; E78.2 Mixed hyperlipidemia; G51.0 Bell's palsy; K28.9 Gastrojejunal ulcer, unspecified as acute or chronic, without hemorrhage or perforation; Z98.61 Coronary angioplasty status; Z87.19 Personal history of other diseases of the digestive system; Z95.811 Presence of heart assist device; Z79.02 Long term (current) use of antithrombotics/antiplatelets; Z79.899 Other long term (current) drug therapy; Z79.82 Long term (current) use of aspirin; Z88.8 Allergy status to other drugs, medicaments and biological substances
CPT/HCPCS: 93641; 33249; 71045; C1769 ×2; C1722; C1892; C1777; J2250; J0690; J2405; J2001; J3010; J1170; J0131; J2704